=== PATIENT | female | born 1940 | race Caucasian/White ===

== ENCOUNTER 2020-01-21 17:29 | Inpatient (IN) | payer MEDICARE, OTHER ==
[~2020-01-21] VITALS: Ht 167.6 cm; Wt 70.3 kg
--- NOTE | 2020-01-21 17:35 | NUR ---
wagner, from home, c/o cough and bodyaches s/p exposure to covid 19, sister was positive and visited her at home. On room air, breathing evenly and unlabored. Connected to the monitor and pulse ox. kept comfortable, will continue to monitor accordingly.
[2020-01-21 18:09] LABS: BASOPHILS % (AUTO) 0.9 % (0.0-2.0); HEMATOCRIT 36 % (33-45); LYMPHOCYTES # (AUTO) 0.5 /CMM (0.8-4.8); LYMPHOCYTES % (AUTO) 11.6 % (20.0-44.0); MEAN CORPUSCULAR HGB CONC 34 g/dl (31.0-36.0); MEAN CORPUSCULAR VOLUME 87 fL (82-100); MONOCYTES # (AUTO) 0.1 /CMM (0.1-1.30); MONOCYTES % (AUTO) 3.2 % (2.0-12.0); NEUTROPHILS # (AUTO) 3.3 /CMM (1.8-8.9); NEUTROPHILS % (AUTO) 84.3 % (43.0-81.0); PLATELET COUNT (AUTO) 165 /CMM (150-450); RED BLOOD CELL COUNT(AUTO) 4.13 MIL/uL (4.0-5.2)
--- NOTE | 2020-01-21 18:13 | NUR ---
IV access initiated and blood drawned and sent to lab.
[2020-01-21 18:17] LABS: CALCIUM, SERUM 8.7 mg/dL (8.5-10.1); CREATININE 0.8 mg/dL (0.6-1.3); POTASSIUM 3.4 mmol/L (3.5-5.1)
[2020-01-21] MEDS ORDERED: CEFTRIAXONE 1GM BAG (ER ONLY) 50 ML IV ONE (18:57)
[2020-01-21] MEDS ORDERED: POTASSIUM CHLORIDE 20 MEQ TAB.PRT.SR PO ONE ×2 (18:58→19:00)
[2020-01-21] MEDS ORDERED: CEFTRIAXONE 1 G in IV D5W 50 ML IV ONE (19:00)
[2020-01-21] MEDS ORDERED: AZITHROMYCIN 500 MG in IV D5W 250 ML IV ONE (19:00)
--- NOTE | 2020-01-21 19:00 | NUR ---
[facility] PAGED, DR. VARGAS ON-CALL. AWAITING FOR CALL BACK.
--- NOTE | 2020-01-21 19:25 | NUR ---
TOOK OVER PT CARE. PT IN BED RESTING COMFORTABLY. VSS. ON REGIONAL FORESTER AND PULSE OX. VSS.
--- NOTE | 2020-01-21 19:27 | NUR ---
PT AAOX4. AWARE OF BEING ADMITTED, VSS.
--- NOTE | 2020-01-21 19:35 | NUR ---
CALLED NURSING SUP FOR BED
--- NOTE | 2020-01-21 19:37 | NUR ---
Shane gay in [facility] - 01/21/20 at 2010 by MICKY CALLED NURSING SUP FOR BED
--- NOTE | 2020-01-21 20:10 | NUR ---
BED ASSIGNMENT TELE 110
--- NOTE | 2020-01-21 20:25 | NUR ---
SPOKE TO [facility], UPDATED PLAN OF CARE.
--- NOTE | 2020-01-21 20:43 | NUR ---
CALLED TO GIVE REPORT, NURSE WILL CALL BACK.
--- NOTE | 2020-01-21 20:51 | NUR ---
CALLED TO GIVE REPORT, NURSE NOT AVAILABLE.
--- NOTE | 2020-01-21 21:01 | NUR ---
REPORT GIVEN TO MILAGROS VÁZQUEZ FOR NABIL
--- NOTE | 2020-01-21 21:21 | NUR ---
PT TRANSFERED PER ACLS PROTOCOL
[2020-01-21 21:50] VITALS: BP 153/83
--- NOTE | 2020-01-21 21:50 | NUR ---
TYRE FINISHER AND EXAMINER ADMISSION NOTES, RECEIVED 79 YEAR OLD FEMALE ADMITTED FROM ER VIA STRETCHER ACCOMPANIED BY RN AND BANDER OPERATOR, UNDER MEDICAL SERVICES OF DR CHRIS GOLD WITH ADMITTING DX COVID 19/PNA, PATIENT A/O X3 ASHLI TO VERBALIZED NEEDS AND CONCERNS, PATIENT WITH SOB/COUGH PLACED PATIENT IN 2PM VIA NC, AFEBRILE AT THIS TIME, SKIN INTACT, IV ACCESS IN RIGHT AC 18G, PATENT AND INTACT, NSR IN TELE MONITOR WITH BBB HR IN 80S AT THIS TIME, BED LOCKED IN LOW POSITION, AMBULATES BUT SOB AT THIS TIME, BSC PLACED FOR PATIENT CONFORMABILITY AND PRESERVE O2, CALL LIGHT W/I REACH, WILL CONTINUE TO MONITOR CLOSELY.
[2020-01-21] MEDS ORDERED: MAG HYDROX/AL HYDROX/SIMETH 30 ML UDC PO PRN (22:30)
[2020-01-21] MEDS ORDERED: Z GUARD REMEDY 2 OZ OINT TP PRN (22:30)
[2020-01-21] MEDS ORDERED: ZOLPIDEM TARTRATE 5 MG TABLET PO PRN (22:30)
[2020-01-21] MEDS ORDERED: MAGNESIUM HYDROXIDE 30 ML UDC PO PRN (22:30)
[2020-01-21] MEDS ORDERED: HYDROCODONE/APAP 5/325MG TABLET PO PRN (22:30)
[2020-01-22] MEDS: ENOXAPARIN SODIUM 40 MG/0.4 ML DISP.SYRIN SQ SCH ×2 (00:23→22:48)
[2020-01-22 04:00] VITALS: BP 134/74
[2020-01-22 06:05] LABS: BASOPHILS % (AUTO) 0.4 % (0.0-2.0); HEMATOCRIT 35 % (33-45); HEMOGLOBIN 11.6 g/dL (11.5-14.8); LYMPHOCYTES # (AUTO) 0.7 /CMM (0.8-4.8); LYMPHOCYTES % (AUTO) 24.4 % (20.0-44.0); MEAN CORPUSCULAR HGB CONC 33 g/dl (31.0-36.0); MEAN CORPUSCULAR VOLUME 86 fL (82-100); MONOCYTES # (AUTO) 0.3 /CMM (0.1-1.30); MONOCYTES % (AUTO) 11.5 % (2.0-12.0); NEUTROPHILS # (AUTO) 1.7 /CMM (1.8-8.9); NEUTROPHILS % (AUTO) 63.7 % (43.0-81.0); PLATELET COUNT (AUTO) 177 /CMM (150-450); RED BLOOD CELL COUNT(AUTO) 4.08 MIL/uL (4.0-5.2); WHITE BLOOD COUNT (AUTO) 2.7 K/uL (4.3-11.0)
[2020-01-22 06:07] LABS: CALCIUM, SERUM 8.6 mg/dL (8.5-10.1); CARBON DIOXIDE 24 mmol/L (21-32); CHLORIDE 106 mmol/L (98-107); CREATININE 0.7 mg/dL (0.6-1.3); GLUCOSE 132 mg/dL (74-106); MAGNESIUM 2.2 mg/dL (1.8-2.4); PHOSPHORUS 3.6 mg/dL (2.5-4.9); POTASSIUM 3.9 mmol/L (3.5-5.1); SODIUM SERUM 142 mmol/L (136-145); UREA NITROGEN, BLOOD 18 mg/dL (7-18)
[2020-01-22 06:15] LABS: CHOLESTEROL 163 mg/dL (<200); HDL CHOLESTEROL 22 mg/dL (40-60); LDL 111 mg/dL (0-99); THYROID STIMULATING HORMONE 0.537 uIU/mL (0.358-3.74); TRIGLYCERIDES 148 mg/dL (30-150)
--- NOTE | 2020-01-22 06:48 | NUR ---
ACID ADJUSTER CLOSING NOTES, PATIENT IN BED AWAKE AT THIS TIME, PATIENT WITH, NO ACUTE DISTRESS NOTED THROUGHOUT THE NIGHT, WITH SOB STILL O2 SAT >96%, NSR ON TELE MONITOR SINUS TACHY AT TIMES IN LOW 100S, AFEBRILE THROUGHOUT THE NIGHT, NO SIGNIFICANT CHANGE IN CONDITION DURING THE NIGHT, BED LOCKED IN LOW POSITION, AMBULATES TO RESTROOM, CALL LIGHT W/I REACH, WILL ENDORSE CONTINUITY OF CARE TO ONCOMING NURSE.
[2020-01-22 06:49] LABS: BAND % (MANUAL) 1 % (0.0-5.0); EOSINOPHILS % (MANUAL) 1 % (0-4); LYMPHOCYTES % (MANUAL) 32 % (16-48); MONOCYTES % (MANUAL) 9 % (0-11.0); NEUTROPHILS % (MANUAL) 57 (42-76)
--- NOTE | 2020-01-22 07:30 | NUR ---
CONVEYOR MAN OPENING NOTES PATIENT A/O X3 AND ABLE TO VERBALIZED HER NEEDS. PATIENT WITH SOB/COUGH PLACED PATIENT IN 2PM VIA NC, AFEBRILE AT THIS TIME, SKIN INTACT, IV ACCESS IN RIGHT AC 18G, PATENT AND INTACT, NSR IN TELE MONITOR WITH BBB HR IN 80S AT THIS TIME, BED LOCKED IN LOW POSITION. BSC PLACED FOR PATIENT CONFORMABILITY AND PRESERVE O2, CALL LIGHT W/I REACH, WILL CONTINUE TO MONITOR.
[2020-01-22] MEDS: PANTOPRAZOLE 40 MG TABLET.DR PO SCH (08:31)
[2020-01-22] MEDS ORDERED: DIFL5DRO RIGHTEYE (09:18)
[2020-01-22] MEDS ORDERED: CARV3.122 PO (09:18)
[2020-01-22] MEDS ORDERED: AMLO-212 PO (09:18)
[2020-01-22] MEDS ORDERED: BROM5DRO3 RIGHTEYE (09:18)
[2020-01-22] MEDS ORDERED: BRIN8DRO RIGHTEYE (09:18)
[2020-01-22] MEDS ORDERED: EZET10TA32 PO (09:18)
[2020-01-22] MEDS ORDERED: LOSA50TA39 PO (09:18)
[2020-01-22] MEDS ORDERED: ICOS1CAP PO (09:18)
[2020-01-22] MEDS ORDERED: ERGO500014 PO (09:18)
[2020-01-22] MEDS ORDERED: HYDR12.55 PO (09:19)
[2020-01-22] MEDS ORDERED: LANS30CA56 PO (09:19)
[2020-01-22] MEDS ORDERED: ASPI-1169 PO (09:19)
[2020-01-22] MEDS: DEXAMETHASONE SOD PHOSPHATE 10 MG/ML VIAL IV SCH (09:38)
[2020-01-22 14:11] LABS: ABG BASE EXCESS -4.1 mmol/L; ABG OXYGEN SATURATION 94.1 % (92.0-98.5); ABG PCO2 24.9 mmHg (35.0-45.0); ABG PH 7.474 (7.350-7.450); ABG PO2 67.5 mmHg (75.0-100.0); AaDO2 52.4 mmHg; COHb 0.2 % (0.5-1.5); MetHb 0.4 % (0.0-1.5); O2Hb 93.5 % (94.0-97.0); SITE, ABG Right Radial; VENT MODE, BG room air
[2020-01-22] MEDS: ACETAMINOPHEN 325 MG TABLET PO PRN (15:24)
--- NOTE | 2020-01-22 18:30 | NUR ---
SENIOR CARE ASSISTANT CLOSING NOTES PATIENT ALERT AND ORIENTED X4. NOT IN ANY ACUTE DISTRESS AT THIS TIME. PT STILL WITH COMPLAIN OF MILD TO MODERATE SOB, O2 SAT >96% WITH NC AT 2LPM. NSR ON TELE MONITOR AND HR IN 90S, BED LOCKED IN LOW POSITION, AMBULATES TO RESTROOM, CALL LIGHT W/I REACH, WILL ENDORSE TO NEXT SHIFT FOR NABIL.
--- NOTE | 2020-01-22 19:35 | NUR ---
RN NOTES PATIENT ALERT AND ORIENTED X4, NO SOB OR ANY RESPIRATORY DISTRESS. ON O2 @2LPM VIA NASAL CANNULA WITH O2 SAT 98%. ON TELE MONITOR, HR IN 90'S. AMBULATES TO RESTROOM. DENIES ANY PAIN OR DISCOMFORT. KEPT CLEAN AND DRY. CALL LIGHT WITHIN REACH. BED LOCKED AND IN LOWEST POSITION. ALL SAFETY MEASURES IMPLEMENTED. CALL LIGHT WITHIN REACH. WILL CONTINUE TO MONITOR.
[2020-01-22 20:00] VITALS: BP 128/68
[2020-01-22] MEDS: AZITHROMYCIN 500 MG in IV D5W 250 ML IV SCH (20:06)
[2020-01-22] MEDS: CEFTRIAXONE 1 G in IV D5W 50 ML IV SCH (21:44)
[2020-01-23] VITALS: BP 144/70
[2020-01-23 04:00] VITALS: BP 129/65
--- NOTE | 2020-01-23 06:53 | NUR ---
RN NOTES PATIENT ALERT AND ORIENTED X4, NO SOB OR ANY RESPIRATORY DISTRESS. ON O2 @2LPM VIA NASAL CANNULA WITH O2 SAT 98%. ON TELE MONITOR, HR IN 90'S. AMBULATES TO RESTROOM. NO SIGNIFICANT CHANGES AT THIS TIME. CALL LIGHT WITHIN REACH. BED LOCKED AND IN LOWEST POSITION. ALL SAFETY MEASURES IMPLEMENTED. CALL LIGHT WITHIN REACH. ENDORSED TO NEXT SHIFT.
--- NOTE | 2020-01-23 07:40 | NUR ---
SHIFT REPORT Recv'd pt. and report from night nurse. Pt. AAOx4 sitting up in bed semi-fowlers with no c/o pain. Tele monitor on reading NSR. O2 @ 2LPM via NC. Pt. c/o SOB and being cold, and stated she did not sleep last night due to having SOB. Explained to pt. she has Pneumonia, which SOB and chills are some symptoms. Pulled pt. up in bed to help improve breathing. Pt. is not exhibiting respiratory distress. Bed in lowest position locked. All safety measures implemented. Call sierra within reach. Will continue to monitor pt.
[2020-01-23 07:41] LABS: C-REACTIVE PROTEIN 4.1 mg/dL (0.0-0.9)
[2020-01-23 12:00] VITALS: BP 97/59
[2020-01-23] MEDS: DEXAMETHASONE SOD PHOSPHATE 10 MG/ML VIAL IV SCH (12:17)
[2020-01-23] MEDS: ACETAMINOPHEN 325 MG TABLET PO PRN ×2 (12:17→23:06)
[2020-01-23] MEDS: PANTOPRAZOLE 40 MG TABLET.DR PO SCH (12:17)
--- NOTE | 2020-01-23 12:30 | NUR ---
Assisted pt. to bathroom. Pt. still c/o SOB, chills, and headache. Administered Tylenol 650mg. Will reevaluate for pain within hour.
--- NOTE | 2020-01-23 13:00 | NUR ---
Daughter, Gillian, and son Marco called inquiring about pt. status, results of chest x-ray done this morning, and requesting to speak with doctor. Informed will call doctor.
[2020-01-23 16:00] VITALS: BP 118/68
--- NOTE | 2020-01-23 16:00 | NUR ---
Spoke with Dr. Graves about pt. having SOB since last night with low O2 saturations at 90%. Informed Dr. patient's son and daughter were requesting to speak with him. Doctor stated that patient's O2 saturation has to stay above 94%, and to increase O2 to 4LPM. Doctor stated will call daughterGillian at .
--- NOTE | 2020-01-23 19:30 | NUR ---
END OF SHIFT REPORT Endorsed pt. to night nurse in stable condition. Pt. is awake and alert x4, and states the Tylenol helped and has no more headache. Pt. also stated her breathing is better, and exhibits no s/s of SOB or respiratory distress. O2 saturation increased to 95%. Pt. ambulatory with assist. IV in Right forearm intact and patent with no s/s of infection or infiltration. Bed in lowest position and locked. All safety measures implemented with call sierra within reach.
[2020-01-23] MEDS: CEFTRIAXONE 1 G in IV D5W 50 ML IV SCH (19:54)
[2020-01-23 20:00] VITALS: BP 112/71
--- NOTE | 2020-01-23 20:00 | NUR ---
RN NOTE PT RECEIVED IN BED RESTING, A/A/O X4. PT IS ON 4 L NC SATING 93 TO 94%, PT HAS UNLABORED BREATHING. PT IS ON TELE MONITOR SHOWING SR IN 80s. SAFETY MEASURES IN PLACE.
[2020-01-23] MEDS: AZITHROMYCIN 500 MG in IV D5W 250 ML IV SCH (20:30)
[2020-01-23] MEDS: ENOXAPARIN SODIUM 40 MG/0.4 ML DISP.SYRIN SQ SCH (23:06)
[2020-01-24] VITALS: BP 108/58
[2020-01-24 04:00] VITALS: BP 106/62
--- NOTE | 2020-01-24 07:25 | NUR ---
RN NOTE PT REMAINED STABLE DURING MY SHIFT, NO ACUTE CHANGES, SHIFT REPORT GIVEN TO INCOMING SHIFT FOR NABIL.
--- NOTE | 2020-01-24 07:45 | NUR ---
RN NOTES PT IN BED RESTING. PT IS ON 8 L OF OXYGEN MASK SAT IN HER 90'S. RAC#18 IS INTACT NO S/S OF INFILTRATION OR INFECTION NOTED.SAFETY MEASUREMENTS ARE IMPLEMENTED PER HOSPITAL POLICY .BED IS IN THE LOWEST POSITIONAND ON THE BRAKE. SIDE RAILS ARE UP X2. CALL LIGHT WITHIN THE PATIENT REACH.WILL CONTINUE TO MONITOR
[2020-01-24 08:00] VITALS: BP 105/55
[2020-01-24] MEDS: PANTOPRAZOLE 40 MG TABLET.DR PO SCH (08:39)
[2020-01-24] MEDS: DEXAMETHASONE SOD PHOSPHATE 10 MG/ML VIAL IV SCH (08:39)
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
[2020-01-24 09:50] LABS: BASOPHILS % (AUTO) 0.1 % (0.0-2.0); HEMATOCRIT 36 % (33-45); LYMPHOCYTES # (AUTO) 0.8 /CMM (0.8-4.8); LYMPHOCYTES % (AUTO) 7.3 % (20.0-44.0); MEAN CORPUSCULAR HGB CONC 33 g/dl (31.0-36.0); MEAN CORPUSCULAR VOLUME 86 fL (82-100); MONOCYTES # (AUTO) 0.9 /CMM (0.1-1.30); MONOCYTES % (AUTO) 8.1 % (2.0-12.0); NEUTROPHILS # (AUTO) 8.9 /CMM (1.8-8.9); NEUTROPHILS % (AUTO) 84.5 % (43.0-81.0); PLATELET COUNT (AUTO) 213 /CMM (150-450); RED BLOOD CELL COUNT(AUTO) 4.22 MIL/uL (4.0-5.2); WHITE BLOOD COUNT (AUTO) 10.6 K/uL (4.3-11.0)
--- NOTE | 2020-01-24 10:00 | NUR ---
RN NOTES PT HAVING SOB REPLACED NASAL CANNULA WITH THE MASK STILL ON 8 L. SATURATION GOES DOWN WHEN SPEAKS OR COUGHS OTHERWISE SATURATING IN 95-97
[2020-01-24 10:02] LABS: CALCIUM, SERUM 8.4 mg/dL (8.5-10.1); CREATININE 0.9 mg/dL (0.6-1.3); POTASSIUM 3.5 mmol/L (3.5-5.1)
--- NOTE | 2020-01-24 11:30 | NUR ---
RN NOTES DR LEVY AWARE OF HER SATURATION STATUS. WILL ORDER CONVALESCENCE PLASMA AND RENDEVIZIR MEDICATION FOR COVID
[2020-01-24 12:00] VITALS: BP 118/58
[2020-01-24 12:07] LABS: C-REACTIVE PROTEIN 15.8 mg/dL (0.0-0.9)
[2020-01-24] MEDS ORDERED: REMDESIVIR (INVESTIGATIONAL) 200 MG in IV NS 0.9% 210 ML IV ONE ×2 (13:00→14:00)
--- NOTE | 2020-01-24 13:00 | NUR ---
RN NOTES DAUGHTER AND SON CALLED MULTIPLE TIMES IN REGARDS TO PATIENT'S STATUS
[2020-01-24 13:33] LABS: ALBUMIN 2.8 g/dL (3.4-5.0); BILIRUBIN,DIRECT 0.1 mg/dL (0.0-0.2); BILIRUBIN,TOTAL 0.3 mg/dL (0.2-1.0); TOTAL PROTEIN, SERUM 7.5 g/dL (6.4-8.2)
--- NOTE | 2020-01-24 14:45 | NUR ---
RN NOTES STARTED REMDEVIR NO REACTION BP IS 112/56
--- NOTE | 2020-01-24 15:45 | NUR ---
RN NOTES PT HAD NO REACTION TO REMDEVIR. PT IS ON MASK ON 8 L SAT 95-97%
[2020-01-24 16:00] VITALS: BP 112/56
[2020-01-24] MEDS: CARVEDILOL 3.125 MG TABLET PO SCH (16:18)
[2020-01-24] MEDS ORDERED: Brinzolamide/Brimonid Tart (Simbrinza 1%-0.2% Eye Drops RIGHTEYE SCH (17:00)
--- NOTE | 2020-01-24 19:02 | NUR ---
RN CLOSING NOTES PT IN BED RESTING. PT IS ON 8 L OF OXYGEN MASK SAT IN HER HIGH 90'S. RAC#18 IS INTACT NO S/S OF INFILTRATION OR INFECTION NOTED.SAFETY MEASUREMENTS ARE IMPLEMENTED PER HOSPITAL POLICY .BED IS IN THE LOWEST POSITION AND ON THE BRAKE. SIDE RAILS ARE UP X2. CALL LIGHT WITHIN THE PATIENT REACH.WILL ENDORSE TO PM NURSE FOR CONTINUE OF CARE
--- NOTE | 2020-01-24 19:20 | NUR ---
RN NOTE PT IN BED IN HIGH LINDER'S POSITION. AWAKE AND ALERT/ORIENTED X 4. ON 8L FACEMASK. RESPIRATIONS EVEN AND UNLABORED. ON CONTINUOUS PULSE OX WITH O2 SAT OF 96%. DENIES PAIN OR DISCOMFORT. NSR ON THE TELE MONITOR. IV LINES PATENT AND INTACT. PLAN OF CARE DISCUSSED. CALL LIGHT WITHIN REACH, SAFETY MEASURES IN PLACE PER PROTOCOL, BED LOCKED AND IN LOW POSITION, SIDE RAILS UP X 2, WILL MONITOR PATIENT.
[2020-01-24 20:00] VITALS: BP 120/57
--- NOTE | 2020-01-24 20:34 | NUR ---
RN NOTE WITNESSED PT SIGN CONSENT FOR CONVALESCENT PLASMA. ALSO ASSISTED PT TO BEDSIDE COMMODE WITH 1 PERSON ASSIST.
[2020-01-24] MEDS: ENOXAPARIN SODIUM 40 MG/0.4 ML DISP.SYRIN SQ SCH (21:43)
[2020-01-24] MEDS: ACETAMINOPHEN 325 MG TABLET PO PRN (23:17)
[2020-01-25] VITALS: BP 142/76
[2020-01-25 04:00] VITALS: BP 140/78
--- NOTE | 2020-01-25 05:00 | NUR ---
RN NOTE PT ASSISTED WITH USING BED AGVIN. AFTERWARDS, PT BECAME SHORT OF BREATH AND O2 SATURATION DROPPED TO 85-88%. PLACED PT ON NON REBREATHER MASK 15L. O2 SATURATION INCREASED TO 95%. WILL CONTINUE TO MONITOR PATIENT.
--- NOTE | 2020-01-25 05:47 | NUR ---
RN NOTE PLACED PT BACK ON 8L FACEMASK. O2 SATURATION 96%. RESPIRATIONS EVEN AND UNLABORED. ALSO PLACED SCD PUMPS ON PATIENT.
--- NOTE | 2020-01-25 06:39 | NUR ---
RN NOTE SPOKE TO OMAR (SON) AND GAVE UPDATE ON PT'S STATUS AND PLAN OF CARE. SON VERBALIZED UNDERSTANDING.
[2020-01-25 06:53] LABS: BASOPHILS % (AUTO) 0.1 % (0.0-2.0); HEMATOCRIT 38 % (33-45); HEMOGLOBIN 12.4 g/dL (11.5-14.8); LYMPHOCYTES # (AUTO) 0.9 /CMM (0.8-4.8); LYMPHOCYTES % (AUTO) 7.2 % (20.0-44.0); MEAN CORPUSCULAR HGB CONC 33 g/dl (31.0-36.0); MEAN CORPUSCULAR VOLUME 86 fL (82-100); MONOCYTES # (AUTO) 0.9 /CMM (0.1-1.30); MONOCYTES % (AUTO) 7.1 % (2.0-12.0); NEUTROPHILS # (AUTO) 10.6 /CMM (1.8-8.9); NEUTROPHILS % (AUTO) 85.6 % (43.0-81.0); PLATELET COUNT (AUTO) 239 /CMM (150-450); RED BLOOD CELL COUNT(AUTO) 4.39 MIL/uL (4.0-5.2); WHITE BLOOD COUNT (AUTO) 12.4 K/uL (4.3-11.0)
--- NOTE | 2020-01-25 07:08 | NUR ---
RN NOTE PT AWAKE AND ALERT/ORIENTED X 4 IN BED. IN HIGH FOLWER'S POSITION. ON FACE MASK 8L. O2 SATURATION VIA CONTINUOUS PULSE OX 96%. RESPIRATIONS EVEN AND UNLABORED, DENIES PAIN OR DISCOMFORT. SCD PUMPS IN PLACE AND FULLY FUNCTIONAL. IV LINES PATENT AND INTACT WITHOUT COMPLICATIONS NOTED AT SITES. NSR VIA TELE MONITOR. CALL LIGHT WITHIN REACH, SAFETY MEASURES IN PLACE, WILL ENDORSE TO MORNING RN FOR NABIL.
[2020-01-25 07:15] LABS: ALBUMIN 2.7 g/dL (3.4-5.0); BILIRUBIN,DIRECT 0.1 mg/dL (0.0-0.2); BILIRUBIN,TOTAL 0.3 mg/dL (0.2-1.0); CALCIUM, SERUM 8.4 mg/dL (8.5-10.1); CREATININE 0.8 mg/dL (0.6-1.3); POTASSIUM 3.3 mmol/L (3.5-5.1); TOTAL PROTEIN, SERUM 7.5 g/dL (6.4-8.2)
[2020-01-25] MEDS ORDERED: Medication Not On Formulary EA (Lansoprazole 30 MG) PO SCH (07:30)
[2020-01-25 08:00] VITALS: BP 150/67
--- NOTE | 2020-01-25 09:40 | NUR ---
RN OPENING NOTE RECEIVED PATIENT IN BED RESTING, NO S/S OF DISTRESS AT THIS TIME. PATIENT NO NONREBREATHER MASK WITH 8L OXYGEN THERAPY. OXYGEN SATURATINO CURRENTLY 95%, VISIBLE SHORTNESS OF BREATH NOTED. TELE MONITOR SHOWING NSR. SIN INTACT. R AC #18G IV AND R FA 20G IV INTACT AND PATENT, NO S/S OF INFECTION AT THIS TIME. ALL SAFETY MEASURES IN PLACE, BED LOCKED IN LOWEST POSITION. CALL LIGHT WITHIN REACH. WILL CONTINUE TO MONITOR AND PROVIDE TREATMENT.
[2020-01-25] MEDS: PANTOPRAZOLE 40 MG TABLET.DR PO SCH (11:04)
[2020-01-25] MEDS: EZETIMIBE 10 MG TABLET PO SCH (11:04)
[2020-01-25] MEDS: CARVEDILOL 3.125 MG TABLET PO SCH ×2 (11:05→17:17)
[2020-01-25] MEDS: ASPIRIN 81 MG TAB.CHEW PO SCH (11:06)
[2020-01-25] MEDS: DEXAMETHASONE SOD PHOSPHATE 10 MG/ML VIAL IV SCH (11:07)
[2020-01-25] MEDS: LOSARTAN POTASSIUM 50 MG TABLET PO SCH (11:07)
[2020-01-25] MEDS: AMLODIPINE BESYLATE 5 MG TABLET PO SCH (11:08)
[2020-01-25] MEDS: HYDROCHLOROTHIAZIDE 25 MG TABLET PO SCH (11:08)
[2020-01-25] MEDS ORDERED: POTASSIUM CHLORIDE 20 MEQ TAB.PRT.SR PO SCH (11:30)
[2020-01-25 12:00] VITALS: BP 145/69
[2020-01-25] MEDS: REMDESIVIR (INVESTIGATIONAL) 100 MG in IV NS 0.9% 230 ML IV SCH (14:35)
[2020-01-25 16:00] VITALS: BP 140/69
[2020-01-25] MEDS: BRIMONIDINE TARTRATE OPHT SOLN 5 ML BOTTLE OP SCH (17:00)
[2020-01-25] MEDS: DORZOLAMIDE OPTH 2% 10 ML BOTTLE RIGHTEYE SCH (17:00)
--- NOTE | 2020-01-25 18:38 | NUR ---
RN CLOSING NOTE RECEIVED PATIENT IN BED RESTING, NO S/S OF DISTRESS AT THIS TIME. PATIENT ON NONREBREATHER MASK WITH 8L OXYGEN THERAPY. OXYGEN SATURATION CURRENTLY 97%, VISIBLE SHORTNESS OF BREATH NOTED. TELE MONITOR SHOWING NSR. SIN INTACT. R AC #18G IV AND R FA 20G IV INTACT AND PATENT, NO S/S OF INFECTION AT THIS TIME. CURRENTLY WAITING ON PLASMA TO ARRIVE FOR ADMINISTRATION. ALL SAFETY MEASURES IN PLACE, BED LOCKED IN LOWEST POSITION. CALL LIGHT WITHIN REACH. WILL ENDORSE TO NIGHT NURSE FOR NABIL.
--- NOTE | 2020-01-25 19:45 | NUR ---
RN NOTES PATIENT IN BED ALERT AND ORIENTED X4, ABLE TO COMMUNICATE NEEDS. RECEIVED PATIENT ON NON REBREATHER MASK, NOT IN ANY DISTRESS, DENIES ANY SOB. CHANGED TO SIMPLE MASK AT 8LPM. O2 SATING AT 90 %. BREATHING EVEN AND UNLABORED. PATIENT ON TELE MONITORING SR HR 71. DENIES ANY PAIN. WITH RIGHT AC G 18 AND RIGHT FA G 20, BOTH PATENT AND INTACT, FLUSHED WITH NS. NO SIGNS OF INFILTRATION NOTED, NO INFECTION NOTED. ALL MEASURES IMPLEMENTED PER PROTOCOL, SIDE RAILS UP X 2, CALL LIGHT WITHIN REACH. BED LOCKED IN LOWEST POSITION.
[2020-01-25 20:00] VITALS: BP 122/56
[2020-01-25] MEDS: ENOXAPARIN SODIUM 40 MG/0.4 ML DISP.SYRIN SQ SCH (21:13)
--- NOTE | 2020-01-25 22:00 | NUR ---
telemarketing agent notes Pts c/o of cough spoke to dr sheeba barlow order and carried out robitussin 5ml po q6hrs prn for cough , will continue to monitor pts.
[2020-01-25] MEDS: GUAIFENESIN/D-METHORPHAN HB 5 ML UDC PO PRN (22:32)
--- NOTE | 2020-01-25 23:50 | NUR ---
RN NOTE PATIENT NOTED WITH SOB, PUT ON NON REBREATHER MASK AT 15LPM.
[2020-01-26] VITALS (10 sets, daily range): BP systolic 106–143; BP diastolic 46–68
--- NOTE | 2020-01-26 04:30 | NUR ---
RN NOTES COUGH STILL NOTED. ROBITUSSIN 5ML GIVEN ORDERED.
[2020-01-26] MEDS: GUAIFENESIN/D-METHORPHAN HB 5 ML UDC PO PRN ×2 (04:35→21:50)
--- NOTE | 2020-01-26 06:31 | NUR ---
RN CLOSING NOTE PATIENT IN BED RESTING, NO S/S OF DISTRESS AT THIS TIME. PATIENT ON NONREBREATHER MASK WITH 15l OXYGEN THERAPY. OXYGEN SATURATION CURRENTLY 96%, VISIBLE SHORTNESS OF BREATH NOTED. TELE MONITOR SHOWING SR.IV R AC #18G IV AND R FA 20G IV INTACT AND PATENT, CURRENTLY WAITING ON PLASMA TO ARRIVE FOR ADMINISTRATION. ALL SAFETY MEASURES IN PLACE, BED LOCKED IN LOWEST POSITION. CALL LIGHT WITHIN REACH. WILL ENDORSE TO RN DAY SHIFT FOR CONTINUITY OF CARE FOR NABIL.
[2020-01-26 07:26] LABS: BASOPHILS % (AUTO) 0.1 % (0.0-2.0); HEMATOCRIT 35 % (33-45); HEMOGLOBIN 11.5 g/dL (11.5-14.8); LYMPHOCYTES % (AUTO) 11.7 % (20.0-44.0); MEAN CORPUSCULAR HGB CONC 33 g/dl (31.0-36.0); MEAN CORPUSCULAR VOLUME 86 fL (82-100); MONOCYTES # (AUTO) 0.9 /CMM (0.1-1.30); MONOCYTES % (AUTO) 10.5 % (2.0-12.0); NEUTROPHILS # (AUTO) 6.9 /CMM (1.8-8.9); NEUTROPHILS % (AUTO) 77.7 % (43.0-81.0); PLATELET COUNT (AUTO) 265 /CMM (150-450); RED BLOOD CELL COUNT(AUTO) 4.02 MIL/uL (4.0-5.2); WHITE BLOOD COUNT (AUTO) 8.9 K/uL (4.3-11.0)
--- NOTE | 2020-01-26 07:29 | NUR ---
RN OPENING NOTE PATIENT IN BED RESTING, NO S/S OF DISTRESS AT THIS TIME. PATIENT ON NONREBREATHER MASK WITH 15L OXYGEN THERAPY. OXYGEN SATURATION CURRENTLY 97%, VISIBLE SHORTNESS OF BREATH NOTED. TELE MONITOR SHOWING SR.IV R AC #18G IV AND R FA 20G IV INTACT AND PATENT, CURRENTLY WAITING ON PLASMA TO ARRIVE FOR ADMINISTRATION. ALL SAFETY MEASURES IN PLACE, BED LOCKED IN LOWEST POSITION. CALL LIGHT WITHIN REACH. WILL CONTINUE TO MONITOR AND PROVIDE CARE.
[2020-01-26 07:40] LABS: ALBUMIN 2.5 g/dL (3.4-5.0); BILIRUBIN,DIRECT 0.1 mg/dL (0.0-0.2); BILIRUBIN,TOTAL 0.3 mg/dL (0.2-1.0); CALCIUM, SERUM 8.4 mg/dL (8.5-10.1); CREATININE 0.8 mg/dL (0.6-1.3); POTASSIUM 3.6 mmol/L (3.5-5.1)
--- NOTE | 2020-01-26 08:05 | NUR ---
PLASMA UPDATE CALLED LAB TO GET UPDATE FOR COVID PLASMA, INFORMED THAT THEY ARE STILL WAITING TO RECEIVE PLASMA.
[2020-01-26 08:06] LABS: C-REACTIVE PROTEIN 17.4 mg/dL (0.0-0.9)
[2020-01-26] MEDS: PANTOPRAZOLE 40 MG TABLET.DR PO SCH (08:42)
[2020-01-26] MEDS: LOSARTAN POTASSIUM 50 MG TABLET PO SCH (08:42)
[2020-01-26] MEDS: ASPIRIN 81 MG TAB.CHEW PO SCH (08:42)
[2020-01-26] MEDS: EZETIMIBE 10 MG TABLET PO SCH (08:42)
[2020-01-26] MEDS: DORZOLAMIDE OPTH 2% 10 ML BOTTLE RIGHTEYE SCH ×3 (08:43→16:52)
[2020-01-26] MEDS: HYDROCHLOROTHIAZIDE 25 MG TABLET PO SCH (08:43)
[2020-01-26] MEDS: BRIMONIDINE TARTRATE OPHT SOLN 5 ML BOTTLE OP SCH ×3 (08:43→16:52)
[2020-01-26] MEDS: AMLODIPINE BESYLATE 5 MG TABLET PO SCH (08:43)
[2020-01-26] MEDS: DEXAMETHASONE SOD PHOSPHATE 10 MG/ML VIAL IV SCH (08:45)
[2020-01-26] MEDS: CARVEDILOL 3.125 MG TABLET PO SCH ×2 (08:54→16:44)
[2020-01-26] MEDS: ICOSAPENT ETHYL 2 GM PO SCH ×2 (09:27→16:33)
[2020-01-26] MEDS: DIFLUPREDNATE RIGHTEYE SCH (09:28)
[2020-01-26] MEDS: REMDESIVIR (INVESTIGATIONAL) 100 MG in IV NS 0.9% 230 ML IV SCH (14:46)
[2020-01-26] MEDS: Brinzolamide/Brimonid Tart (Simbrinza 1%-0.2% Eye Drops RIGHTEYE SCH (17:47)
--- NOTE | 2020-01-26 18:35 | NUR ---
RN OPENING NOTE PATIENT IN BED RESTING, NO S/S OF DISTRESS AT THIS TIME. PATIENT ON NONREBREATHER MASK WITH 15L OXYGEN THERAPY. OXYGEN SATURATION CURRENTLY 97%, VISIBLE SHORTNESS OF BREATH NOTED. TELE MONITOR SHOWING SR. IV R AC #18G IV AND R FA 20G IV INTACT AND PATENT, CURRENTLY WAITING ON PLASMA TO ARRIVE FOR ADMINISTRATION. ALL SAFETY MEASURES IN PLACE, BED LOCKED IN LOWEST POSITION. CALL LIGHT WITHIN REACH. WILL ENDORSE TO HATCHERY EMPLOYEE RN FOR NABIL. Addendum: 01/26/20 at 1836 by MABEL MORALES RN *RN CLOSING NOTE
--- NOTE | 2020-01-26 19:30 | NUR ---
RN OPENING NOTES RECEIVED PATIENT IN BED, ALERT AND ORIENTED. ON NON-REBREATHER MASK 15L. SATING AT 91% NOT IN ANY ACUTE DISTRESS. MINIMAL SOB NOTED.HOB ELEVATED. ON TELE MONITOR READING SR HR 81. DENIES PAIN. WITH IV R AC G18 R FA G20, BOTH PATENT AND INTACT. FLUSHED WITH NS. NO SIGNS OF INFILTRATION NO INFECTION NOTED. CALL LIGHT WITHIN REACH. BED LOCKED IN LOWEST POSITION. SIDE RAILS UP X 2.
[2020-01-26] MEDS: ENOXAPARIN SODIUM 40 MG/0.4 ML DISP.SYRIN SQ SCH (21:21)
[2020-01-26] MEDS: BROMFENAC SODIUM RIGHTEYE SCH ×2 (21:21→21:29)
--- NOTE | 2020-01-26 21:30 | NUR ---
RN NOTE BROMSITE EYE DROP NOT GIVEN DUE TO PATIENT REFUSAL. EXPLAINED RISKS AND BENEFITS
--- NOTE | 2020-01-26 22:37 | NUR ---
RN NOTE CONVALESCENT PLASMA INFUSION STARTED AT 2222. NO SIGNS OF DISTRESS NOTED. PATIENT TOLERATING THE INFUSION NO S/SX OF REACTIONS NOTED. BP 131/56 R 23 HR 75 T 97.3. WILL CONTINUE TO MONITOR.
[2020-01-27] VITALS (7 sets, daily range): BP systolic 96–141; BP diastolic 51–68
--- NOTE | 2020-01-27 01:03 | NUR ---
RN NOTE CONVALESCENT PLASMA INFUSION COMPLETED. NO DISTRESS NOTED. PATIENT DENIES ANY PAIN OR DISCOMFORT AT THIS TIME. VS WITHIN NORMAL RANGE. WILL CONTINUE TO MONITOR.
[2020-01-27 06:08] LABS: EOSINOPHILS % (AUTO) 0.2 % (0.0-6.0); HEMATOCRIT 35 % (33-45); HEMOGLOBIN 11.6 g/dL (11.5-14.8); LYMPHOCYTES # (AUTO) 1.3 /CMM (0.8-4.8); LYMPHOCYTES % (AUTO) 11.6 % (20.0-44.0); MEAN CORPUSCULAR HGB CONC 33 g/dl (31.0-36.0); MEAN CORPUSCULAR VOLUME 86 fL (82-100); MONOCYTES % (AUTO) 9.1 % (2.0-12.0); NEUTROPHILS % (AUTO) 79.1 % (43.0-81.0); PLATELET COUNT (AUTO) 300 /CMM (150-450); RED BLOOD CELL COUNT(AUTO) 4.11 MIL/uL (4.0-5.2); WHITE BLOOD COUNT (AUTO) 11.4 K/uL (4.3-11.0)
--- NOTE | 2020-01-27 06:18 | NUR ---
RN CLOSING NOTE PATIENT IN BED RESTING, NO S/S OF DISTRESS AT THIS TIME. PATIENT ON NONREBREATHER MASK WITH 15liters OXYGEN THERAPY. OXYGEN SATURATION CURRENTLY 95%, VISIBLE SHORTNESS OF BREATH NOTED. TELE MONITOR SR.76 IV R AC #18G IV AND R FA 20G IV INTACT AND PATENT, ALL SAFETY MEASURES IN PLACE, BED LOCKED IN LOWEST POSITION. CALL LIGHT WITHIN REACH. WILL ENDORSE TO RN DAY SHIFT FOR CONTINUITY OF CARE FOR NABIL PTS IS S/P CONVALESCENT PLASMA NO ASE NOTED.
[2020-01-27 06:38] LABS: ALBUMIN 2.5 g/dL (3.4-5.0); BILIRUBIN,DIRECT 0.1 mg/dL (0.0-0.2); BILIRUBIN,TOTAL 0.3 mg/dL (0.2-1.0); CALCIUM, SERUM 8.4 mg/dL (8.5-10.1); CREATININE 0.8 mg/dL (0.6-1.3); POTASSIUM 3.4 mmol/L (3.5-5.1); TOTAL PROTEIN, SERUM 6.8 g/dL (6.4-8.2)
[2020-01-27] MEDS: GUAIFENESIN/D-METHORPHAN HB 5 ML UDC PO PRN ×2 (06:55→20:36)
--- NOTE | 2020-01-27 07:30 | NUR ---
PEDIATRIC SPEECH THERAPIST AM NOTES PATIENT IN BED, AWAKE, ALERT X 4, NO S/S OF DISTRESS AT THIS TIME. PATIENT ON NONREBREATHER MASK WITH 15L OXYGEN THERAPY. OXYGEN SATURATION CURRENTLY 93%, VISIBLE SHORTNESS OF BREATH NOTED ON ACTIVITY. TELE MONITOR SHOWING SR HR 74. DENIES PAIN OR DISCOMFORT, IV R AC #18G IV AND R FA 20G IV FLUSHES WELL, SITE CLEAR. ABLE TO TURN SELF, USES BSC NEEDS ASSIST. ALL SAFETY MEASURES IN PLACE, BED LOCKED IN LOWEST POSITION. CALL LIGHT WITHIN REACH. WILL CONTINUE TO MONITOR AND PROVIDE CARE. FOR 3RD BAG OF REDEMSIVIR INFUSION LATER.
[2020-01-27] MEDS: ICOSAPENT ETHYL 2 GM PO SCH ×2 (08:24→16:57)
[2020-01-27] MEDS: DIFLUPREDNATE RIGHTEYE SCH (08:25)
[2020-01-27] MEDS: PANTOPRAZOLE 40 MG TABLET.DR PO SCH (08:25)
[2020-01-27] MEDS: Brinzolamide/Brimonid Tart (Simbrinza 1%-0.2% Eye Drops RIGHTEYE SCH ×2 (08:25→16:58)
[2020-01-27] MEDS: EZETIMIBE 10 MG TABLET PO SCH (08:26)
[2020-01-27] MEDS: ASPIRIN EC 81 MG TABLET.DR PO SCH (08:26)
[2020-01-27] MEDS: DEXAMETHASONE SOD PHOSPHATE 10 MG/ML VIAL IV SCH (08:26)
[2020-01-27] MEDS: HYDROCHLOROTHIAZIDE 25 MG TABLET PO SCH (08:27)
[2020-01-27] MEDS: LOSARTAN POTASSIUM 50 MG TABLET PO SCH (08:27)
[2020-01-27] MEDS: CARVEDILOL 3.125 MG TABLET PO SCH ×2 (08:28→16:57)
[2020-01-27] MEDS: AMLODIPINE BESYLATE 5 MG TABLET PO SCH (09:00)
[2020-01-27] MEDS: ENSURE ENLIVE 237 ML LIQUID (VANILLA) PO SCH ×3 (09:30→17:07)
--- NOTE | 2020-01-27 09:30 | NUR ---
RN NOTES DUE MEDS GIVEN
[2020-01-27] MEDS ORDERED: CHOLECALCIFEROL 1,000 UNIT TABLET (VIT D3) PO SCH (11:00)
[2020-01-27] MEDS ORDERED: POTASSIUM CHLORIDE 20 MEQ TAB.PRT.SR PO ONE (11:00)
[2020-01-27] MEDS: ZINC SULFATE 220 MG CAPSULE PO SCH (11:44)
[2020-01-27] MEDS: IV D5/ 0.9% NACL 1,000 ML IV PRN (11:44)
[2020-01-27] MEDS: REMDESIVIR (INVESTIGATIONAL) 100 MG in IV NS 0.9% 230 ML IV SCH (15:09)
--- NOTE | 2020-01-27 15:18 | NUR ---
RN NOTES REDEMSIVIR BAG 3/4 STARTED. BP 100/57
--- NOTE | 2020-01-27 18:28 | NUR ---
EQUALIZER OPERATOR CLOSING NOTES PATIENT IN BED, AWAKE, ALERT X 4, RESTING. NO S/S OF DISTRESS AT THIS TIME. PATIENT ON NONREBREATHER MASK WITH 15L OXYGEN THERAPY. OXYGEN SATURATION CURRENTLY 95%, VISIBLE SHORTNESS OF BREATH NOTED ON ACTIVITY AND PM CARE. TELE MONITOR SHOWING SR HR 72. DENIES PAIN OR DISCOMFORT, IV R AC #18G IV FLUSHES WELL AND R FA 20G WITH D5NS AT 75 ML/HR. BOTH SITES CLEAR. ABLE TO TURN SELF, USES BED GAVIN. SAFETY MEASURES IN PLACE, BED LOCKED IN LOWEST POSITION. CALL LIGHT WITHIN REACH. ALL NEEDS MET. WILL ENDORSE TO NEXT SHIFT FOR NABIL.
--- NOTE | 2020-01-27 19:34 | NUR ---
TAPPER OPERATOR OPENING NOTES RECEIVED PATIENT RESTING IN BED COMFORTABLY; A/OX4, TOLERATING 15LPM VIA NON-REBREATHER WELL; NO DISTRESS NOTED; PATIENT ABLE TO MAKE NEEDS KNOWN; PATIENT EXPERIENCES SOB ON EXERTION; TELE MONITOR READS SINUS RHYTHM 62BPM; R AC 18#, R FA # 20 INTACT AND PATENT, TOLERATING IVF WELL; ISOLATION PRECAUTIONS MAINTAINED; SAFETY PRECAUTIONS IMPLEMENTED; BED LOCKED IN LOW POSITION; SIDE RAILSX2; CALL LIGHT WITHIN REACH; WILL CONT TO MONITOR
[2020-01-27] MEDS: ENOXAPARIN SODIUM 40 MG/0.4 ML DISP.SYRIN SQ SCH (21:00)
[2020-01-27] MEDS: BROMFENAC SODIUM RIGHTEYE SCH (21:01)
[2020-01-28] VITALS: BP 102/68
--- NOTE | 2020-01-28 00:06 | NUR ---
CLIENT SUCCESS DIRECTOR NOTES SPOKE WITH PATIENT'S DAUGHTER -- CELSO [phone]; WANTED UPDATE ON MOTHER'S CONDITION; PER DAUGHTER, PATIENT USUALLY FEELS COLD AND HAS HEATING BLANKET, WILL TURN ON HEATING BLANKET TO LOW SETTING AND CONT TO MONITOR;
--- NOTE | 2020-01-28 01:38 | NUR ---
COLOR CONTROL OPERATOR NOTES PATIENT REPORTING SHE IS HAVING DIFFICULTY BREATHING; SOB NOTED; PATIENT ON 15LPM VIA NON-REBREATHER, SATTING 93%; MADE AWARE; PER MD, ORDER FOR BIPAP; WILL INFORM RT AND CONT TO MONITOR Addendum: 01/28/20 at 0142 by TERESA CAPOEN RN CONFIRMING IF OKAY TO HAVE PATIENT ON BIPAP WITH COVID; PER ICU, HIGH FLOW ONLY; MADE AWARE; INFORMING RT;
[2020-01-28] MEDS: GUAIFENESIN/D-METHORPHAN HB 5 ML UDC PO PRN ×2 (02:53→21:03)
[2020-01-28] MEDS: IV D5/ 0.9% NACL 1,000 ML IV PRN (03:49)
[2020-01-28 04:00] VITALS: BP 125/63
[2020-01-28 06:31] LABS: BASOPHILS % (AUTO) 0.1 % (0.0-2.0); EOSINOPHILS % (AUTO) 0.3 % (0.0-6.0); HEMATOCRIT 37 % (33-45); HEMOGLOBIN 11.8 g/dL (11.5-14.8); LYMPHOCYTES # (AUTO) 1.3 /CMM (0.8-4.8); MEAN CORPUSCULAR HGB CONC 32 g/dl (31.0-36.0); MEAN CORPUSCULAR VOLUME 86 fL (82-100); MONOCYTES # (AUTO) 1.1 /CMM (0.1-1.30); MONOCYTES % (AUTO) 9.2 % (2.0-12.0); NEUTROPHILS # (AUTO) 9.7 /CMM (1.8-8.9); NEUTROPHILS % (AUTO) 79.4 % (43.0-81.0); PLATELET COUNT (AUTO) 321 /CMM (150-450); RED BLOOD CELL COUNT(AUTO) 4.24 MIL/uL (4.0-5.2); WHITE BLOOD COUNT (AUTO) 12.2 K/uL (4.3-11.0)
--- NOTE | 2020-01-28 06:32 | NUR ---
TOOL SMITH CLOSING NOTES PATIENT RESTING IN BED COMFORTABLY; A/OX4, SLIGHT SOB NOTED; PATIENT TOLEARTING NON-REBREATHER 15LPM WELL; SATTING 93-96%; BREATHING EVENLY; PATIENT ABLE TO MAKE NEEDS KNOWN; TELE MONITOR READS SINUS RHYTHM; ISOLATION MAINTAINED; SAFTEY PRECAUTIONS IMPLEMENTED; ALL NEEDS RENDERED; WILL ENDORSE NABIL TO ONCOMING SHIFT
[2020-01-28 06:43] LABS: ALBUMIN 2.3 g/dL (3.4-5.0); BILIRUBIN,DIRECT 0.1 mg/dL (0.0-0.2); BILIRUBIN,TOTAL 0.4 mg/dL (0.2-1.0); CALCIUM, SERUM 8.3 mg/dL (8.5-10.1); CREATININE 0.7 mg/dL (0.6-1.3); POTASSIUM 3.3 mmol/L (3.5-5.1); TOTAL PROTEIN, SERUM 6.6 g/dL (6.4-8.2)
[2020-01-28 07:00] LABS: C-REACTIVE PROTEIN 7.7 mg/dL (0.0-0.9)
--- NOTE | 2020-01-28 07:42 | NUR ---
PT RECEIVED IN BED, ALERT AND ORIENTED X 4. PT ON 15L NON REBREATHER MASK. NO RESPIRATORY DISTRESS, BREATHING IS EVEN AND UNLABORED AT 94% O2 SATURATION. TELE MONITORING SHOWS SINUS RHYTHM. PT HAS RAC #18 AND RIGHT FOREARM #20 INTACT AND FLUSHED. NO SIGNS OF INFECTION OR INFILTRATION. BED LOCKED LOWEST POSITION, CALL LIGHT WITHIN REACH. ALL SAFETY MEASURES IN PLACE. WILL CONTINUE TO MONITOR CLOSELY
[2020-01-28 08:00] VITALS: BP 117/63
[2020-01-28] MEDS: EZETIMIBE 10 MG TABLET PO SCH (09:17)
[2020-01-28] MEDS: ASPIRIN EC 81 MG TABLET.DR PO SCH (09:18)
[2020-01-28] MEDS: ZINC SULFATE 220 MG CAPSULE PO SCH (09:18)
[2020-01-28] MEDS: CARVEDILOL 3.125 MG TABLET PO SCH ×2 (09:18→18:30)
[2020-01-28] MEDS: PANTOPRAZOLE 40 MG TABLET.DR PO SCH (09:19)
[2020-01-28] MEDS: DEXAMETHASONE SOD PHOSPHATE 10 MG/ML VIAL IV SCH (09:20)
[2020-01-28] MEDS: ICOSAPENT ETHYL 2 GM PO SCH ×2 (09:22→18:30)
[2020-01-28] MEDS: DIFLUPREDNATE RIGHTEYE SCH (09:22)
[2020-01-28] MEDS: Brinzolamide/Brimonid Tart (Simbrinza 1%-0.2% Eye Drops RIGHTEYE SCH ×2 (09:23→18:30)
[2020-01-28] MEDS ORDERED: POTASSIUM CHLORIDE 20 MEQ TAB.PRT.SR PO ONE (10:30)
[2020-01-28] MEDS: ENSURE ENLIVE 237 ML LIQUID (VANILLA) PO SCH ×3 (11:21→18:30)
[2020-01-28 12:00] VITALS: BP 132/70
--- NOTE | 2020-01-28 12:12 | NUR ---
PT SOB AT REST, ON 15L O2 SATS 90%. MD LEVY NOTIFIED, ORDERS HIGH FLOW 40L, 60% O2 IF AVAILABLE. RT NOTIFIED
[2020-01-28] MEDS ORDERED: CEFEPIME 2 GM in IV D5W 100 ML IV SCH (13:00)
[2020-01-28] MEDS ORDERED: VANCOMYCIN 1 GM in IV D5W 250ml IV SCH (13:00)
[2020-01-28] MEDS: REMDESIVIR (INVESTIGATIONAL) 100 MG in IV NS 0.9% 230 ML IV SCH (14:27)
[2020-01-28 16:00] VITALS: BP 159/93
--- NOTE | 2020-01-28 16:00 | NUR ---
MD PELEG NOTIFIED OF SATS 90% ON 40L HIGH FLOW. MD PELEG ADJUST ORDER TO 60L HIGH FLOW, 60% FIO2. SATS IMPROVED TO 91-94%. PT STATES IMPROVED BREATHING
[2020-01-28 16:41] LABS: ABG BASE EXCESS -3.3 mmol/L; ABG OXYGEN SATURATION 91.4 % (92.0-98.5); ABG PCO2 25.2 mmHg (35.0-45.0); ABG PH 7.487 (7.350-7.450); ABG PO2 61.7 mmHg (75.0-100.0); AaDO2 338.4 mmHg; COHb 0.3 % (0.5-1.5); MetHb 0.3 % (0.0-1.5); O2Hb 90.9 % (94.0-97.0); SITE, ABG Right Radial; VENT MODE, BG HI FLO NC 60 L 60%
--- NOTE | 2020-01-28 19:36 | NUR ---
PT REMAINS IN BED, ALERT AND ORIENTED X 4. NO RESPIRATORY DISTRESS CURRENTLY ON 60L HIGH FLOW 60% FIO2. PT CONTINUES TO HAVE POOR APPETITE, ORDERED ENSURE DRINKS CONSUMED A TOTAL OF 10%. PT FAMILY UPDATED AND NOTIFIED OF PT CONDITION. PT IV SITES REMAIN INTACT AND FLUSHED, NO SIGNS OF INFECTION OR INFILTRATION. BED LOCKED LOWEST POSITION, CALL LIGHT WITHIN REACH, ALL SAFETY MEASURES IN PLACE. REPORT GIVEN TO HECTOR FOR NABIL
[2020-01-28 20:00] VITALS: BP 106/52
--- NOTE | 2020-01-28 20:17 | NUR ---
television engineering teacher opening note received pt in bed. a/o x2. Breathing even and unlabored on 60L 60% FIO2 high flow. 02 saturation at 91-93%. Pt denies sob. Denies any pain or discomfort. RFA iv site patent and intact. IV fluids infusing well. All needs rendered. Bed in lowest position. Srx2 up. Call light within reach. Will continue to monitor.
[2020-01-28] MEDS: BROMFENAC SODIUM RIGHTEYE SCH (22:06)
[2020-01-28] MEDS: ENOXAPARIN SODIUM 40 MG/0.4 ML DISP.SYRIN SQ SCH (22:08)
[2020-01-28] MEDS: ACETAMINOPHEN 325 MG TABLET PO PRN (22:09)
[2020-01-29] VITALS (10 sets, daily range): BP systolic 115–169; BP diastolic 45–85
[2020-01-29 06:23] LABS: BASOPHILS % (AUTO) 0.1 % (0.0-2.0); EOSINOPHILS % (AUTO) 0.4 % (0.0-6.0); HEMATOCRIT 37 % (33-45); HEMOGLOBIN 12.1 g/dL (11.5-14.8); LYMPHOCYTES # (AUTO) 1.4 /CMM (0.8-4.8); LYMPHOCYTES % (AUTO) 11.1 % (20.0-44.0); MEAN CORPUSCULAR HGB CONC 33 g/dl (31.0-36.0); MEAN CORPUSCULAR VOLUME 86 fL (82-100); MONOCYTES # (AUTO) 1.1 /CMM (0.1-1.30); MONOCYTES % (AUTO) 8.2 % (2.0-12.0); NEUTROPHILS # (AUTO) 10.3 /CMM (1.8-8.9); NEUTROPHILS % (AUTO) 80.2 % (43.0-81.0); PLATELET COUNT (AUTO) 345 /CMM (150-450); RED BLOOD CELL COUNT(AUTO) 4.32 MIL/uL (4.0-5.2); WHITE BLOOD COUNT (AUTO) 12.9 K/uL (4.3-11.0)
[2020-01-29 06:36] LABS: ALBUMIN 2.3 g/dL (3.4-5.0); BILIRUBIN,DIRECT 0.2 mg/dL (0.0-0.2); BILIRUBIN,TOTAL 0.4 mg/dL (0.2-1.0); CALCIUM, SERUM 8.4 mg/dL (8.5-10.1); CREATININE 0.8 mg/dL (0.6-1.3); POTASSIUM 3.7 mmol/L (3.5-5.1); TOTAL PROTEIN, SERUM 6.9 g/dL (6.4-8.2)
--- NOTE | 2020-01-29 06:37 | NUR ---
Datapower Consultant note Pt in bed, awake a/o x3 . Breathing even and unlabored on 60L of 02 via high flow. O2 saturation 90-92% . Normal Sinus rhythm on monitor. HR 66. No sob or acute distress noted. Rfa iv site patent and intact. IV fluids infusing well. All needs rendered. Bed in lowest position. Call light within reach. Will endorse to am nurse for continuity of care.
[2020-01-29] MEDS: PANTOPRAZOLE 40 MG TABLET.DR PO SCH (07:00)
--- NOTE | 2020-01-29 07:55 | NUR ---
SENIOR SALES ADMINISTRATOR OPENING NOTES Bedside endorsement done. Pt is in bed, awake a/o x3, amharic-speaking but able to understand Liberian. Breathing even and unlabored on 60L of 02 via high flow, w/ O2 sat between 91-93%. On tele monitoring w/ reading of SR, hr in the 70's, no cardiac distress noted. IV line on RFA #20 intact and patent, IVF of D5NS infusing well. Safety precs in place: bed locked and on lowest position, sr up x2, call light within reach. Will continue to monitor.
--- NOTE | 2020-01-29 09:55 | NUR ---
RN NOTES PATIENT SEEN BY DR. LEVY; ADJUST HIGH FLOW TO 80% FIO2, 60L.
--- NOTE | 2020-01-29 09:56 | NUR ---
CONVALESCENT PLASMA BAG HUNG. PT AFEBRILE, BP 146/61
[2020-01-29] MEDS: ASPIRIN EC 81 MG TABLET.DR PO SCH (11:10)
[2020-01-29] MEDS: DEXAMETHASONE SOD PHOSPHATE 10 MG/ML VIAL IV SCH (11:11)
[2020-01-29] MEDS: ICOSAPENT ETHYL 2 GM PO SCH ×2 (11:13→17:24)
[2020-01-29] MEDS: ENSURE ENLIVE 237 ML LIQUID (VANILLA) PO SCH ×3 (11:13→17:23)
[2020-01-29] MEDS: CARVEDILOL 3.125 MG TABLET PO SCH ×2 (11:13→17:23)
[2020-01-29] MEDS: ZINC SULFATE 220 MG CAPSULE PO SCH (11:14)
[2020-01-29] MEDS: EZETIMIBE 10 MG TABLET PO SCH (11:14)
[2020-01-29] MEDS: Brinzolamide/Brimonid Tart (Simbrinza 1%-0.2% Eye Drops RIGHTEYE SCH ×2 (11:15→17:24)
[2020-01-29] MEDS: ERGOCALCIFEROL (VITAMIN D 2) 50,000 UNIT CAPSULE PO SCH (11:18)
[2020-01-29] MEDS: DIFLUPREDNATE RIGHTEYE SCH (11:19)
--- NOTE | 2020-01-29 19:47 | NUR ---
PT REMAINS IN BED LOCKED LOWEST POSITION, PT ALERT AND ORIENTED X 4. PT ON HIGH FLOW O2, 60L AND AND 80% FIO2 PRESCRIBED BY MD LEVY, ADJUSTED FROM 60L / 60% FIO2 EARLIER THIS SHIFT. NO RESPIRATORY DISTRESS, O2 SAT 94-96%. PT ON MONITOR SHOWING SR. PT HAD 3X VOIDS IN BEDPAN TODAY. PT RFA @20 RUNNING D5NS @40 ML/HR, NO SIGNS OF INFECTION OR INFILTRATION. BED IN LOCKED LOWEST POSITION, CALL LIGHT WITHIN REACH, ALL SAFETY MEASURES IN PLACE. REPORT GIVEN TO JENNIFER FOR NABIL.
[2020-01-29] MEDS: BROMFENAC SODIUM RIGHTEYE SCH (21:39)
[2020-01-29] MEDS: ENOXAPARIN SODIUM 40 MG/0.4 ML DISP.SYRIN SQ SCH (21:41)
[2020-01-29] MEDS: GUAIFENESIN/D-METHORPHAN HB 5 ML UDC PO PRN (21:59)
[2020-01-29] MEDS: IV D5/ 0.9% NACL 1,000 ML IV PRN (23:39)
[2020-01-30] VITALS (7 sets, daily range): BP systolic 107–154; BP diastolic 41–64
--- NOTE | 2020-01-30 05:34 | NUR ---
ENDING NOTES:ALERT / ORIENTATED X4 ATTEMPTED THE INC SPIR UP TP 250 ONLY DID IT 2x SHE TIRES EASIL WITH ANY ACTIVITY. HIGH FLOW 60l/95% SATS WHEN ASLEEO 92 WHEN AWAKE 95 - 98% SHE NEEDS MAX ASSIST TO BE REPOSITIONED AND CARED FOR VITAL SIGNS STABLE. USES THE bsc WITH ONE URSE ASSIST
[2020-01-30 05:58] LABS: BASOPHILS % (AUTO) 0.1 % (0.0-2.0); EOSINOPHILS % (AUTO) 0.4 % (0.0-6.0); HEMATOCRIT 35 % (33-45); HEMOGLOBIN 11.5 g/dL (11.5-14.8); LYMPHOCYTES % (AUTO) 9.3 % (20.0-44.0); MEAN CORPUSCULAR HGB CONC 33 g/dl (31.0-36.0); MEAN CORPUSCULAR VOLUME 86 fL (82-100); MONOCYTES # (AUTO) 0.7 /CMM (0.1-1.30); NEUTROPHILS # (AUTO) 9.3 /CMM (1.8-8.9); NEUTROPHILS % (AUTO) 84.2 % (43.0-81.0); PLATELET COUNT (AUTO) 299 /CMM (150-450); RED BLOOD CELL COUNT(AUTO) 4.08 MIL/uL (4.0-5.2); WHITE BLOOD COUNT (AUTO) 11.1 K/uL (4.3-11.0)
[2020-01-30 06:40] LABS: CREATININE 0.7 mg/dL (0.6-1.3); POTASSIUM 3.8 mmol/L (3.5-5.1)
[2020-01-30] MEDS: PANTOPRAZOLE 40 MG TABLET.DR PO SCH (06:43)
[2020-01-30] MEDS: GUAIFENESIN/D-METHORPHAN HB 5 ML UDC PO PRN ×3 (06:44→21:03)
[2020-01-30 06:51] LABS: C-REACTIVE PROTEIN 19.4 mg/dL (0.0-0.9)
--- NOTE | 2020-01-30 07:37 | NUR ---
PT RECEIVED IN BED, ALERT AND ORIENTED X 4. PT CURRENTLY ON HIGH FLOW O2, 60L, 95% FIO2. O2 SATURATION 91% NO RESPIRATORY DISTRESS. PT ON MONITOR SHOWING SR. PT HAS RFA 20 RUNNING D5NS AT 40 ML/HR, NO SIGNS OF INFECTION OR INFILTRATION. PT AMBULATORY X 1 MODERATE ASSIST TO BEDSIDE COMMODE. SKIN IS INTACT. PT IN BED LOCKED LOWEST POSITION, CALL LIGHT WITHIN REACH, ALL SAFETY MEASURES IN PLACE. WILL CONTINUE TO MONITOR CLOSELY
[2020-01-30] MEDS: DEXAMETHASONE SOD PHOSPHATE 10 MG/ML VIAL IV SCH (09:39)
[2020-01-30] MEDS: ASPIRIN EC 81 MG TABLET.DR PO SCH (09:39)
[2020-01-30] MEDS: ZINC SULFATE 220 MG CAPSULE PO SCH (09:39)
[2020-01-30] MEDS: DIFLUPREDNATE RIGHTEYE SCH (09:39)
[2020-01-30] MEDS: EZETIMIBE 10 MG TABLET PO SCH (09:39)
[2020-01-30] MEDS: Brinzolamide/Brimonid Tart (Simbrinza 1%-0.2% Eye Drops RIGHTEYE SCH ×2 (09:39→19:38)
[2020-01-30] MEDS: ICOSAPENT ETHYL 2 GM PO SCH ×2 (09:40→19:38)
[2020-01-30] MEDS: CARVEDILOL 3.125 MG TABLET PO SCH ×2 (09:43→19:37)
[2020-01-30] MEDS: ENSURE ENLIVE 237 ML LIQUID (VANILLA) PO SCH ×3 (09:43→19:37)
[2020-01-30 10:54] LABS: BAND % (MANUAL) 3 % (0.0-5.0); LYMPHOCYTES % (MANUAL) 10 % (16-48); MONOCYTES % (MANUAL) 2 % (0-11.0); NEUTROPHILS % (MANUAL) 85 (42-76)
--- NOTE | 2020-01-30 11:00 | NUR ---
PT REPORTS OF SMALL AMOUNT OF BLOOD IN COUGH. MD LEVY ALERTED, INFORMS PT THAT IT IS EXPECTED WHEN ON HIGH-FLOW O2, NO FURTHER ORDERS AT THIS TIME
--- NOTE | 2020-01-30 19:30 | NUR ---
DESK EDITOR OPENING NOTES RECEIVED PATIENT IN BED, ALERT AND ORIENTED X 4. VERBALLY RESPONSIVE AND ABLE TO FOLLOW DIRECTIONS. BREATHING REGULAR AND UNLABORED ON HIGH FLOW OXYGEN AT 60L/MIN, LATEST SPO2 97%. RIGHT FOREARM G20 IV LINE INTACT AND PATENT, INFUSING WELL WITH NO BLEEDING OR S/S OF INFILTRATION NOTED. ON CARDIAC MONITORING WITH NSR AT 73bpm. DENIES PAIN/DISCOMFORT AT THIS TIME. BED LOW AND LOCKED ON HIGH FOWLERS POSITION. MAINTAINED ON CONTACT/DROPLET ISOLATION FOR COVID19, PROPER HAND WASHING AND ISOLATION PRECAUTIONS OBSERVED. CALL LIGHT IN REACH. WILL CONTINUE TO MONITOR.
--- NOTE | 2020-01-30 19:41 | NUR ---
PT REMAINS IN BED, ALERT AND ORIENTED X 4. PT ON 60L / 95% FIO2. NO RESPIRATORY DISTRESS OR SOB. PT SINUS RHYTHM ON MONITOR. PT SKIN REMAINS INTACT. PT ON CARDIAC DIET. PT RFA D5NS AT 40 ML/HR. NO SIGNS OF INFECTION OR INFILTRATION. HOB 40 DEGREES. BED IN LOCKED LOWEST POSITION, CALL LIGHT WITHIN REACH. ALL SAFETY MEASURES IN PLACE. REPORT GIVEN TO PERLA FOR NABIL
[2020-01-30] MEDS: ENOXAPARIN SODIUM 40 MG/0.4 ML DISP.SYRIN SQ SCH (21:05)
--- NOTE | 2020-01-30 21:05 | NUR ---
MEASUREMENT SUPERVISOR NOTES REQUESTED FOR ROBITUSSIN COUGH SYRUP. NON-PHARMACOLOGICAL INTERVENTIONS PROVIDED.
[2020-01-30] MEDS: BROMFENAC SODIUM RIGHTEYE SCH (21:07)
[2020-01-31] VITALS: BP 155/69
[2020-01-31 04:00] VITALS: BP 149/64
[2020-01-31 05:48] LABS: BASOPHILS % (AUTO) 0.1 % (0.0-2.0); EOSINOPHILS % (AUTO) 0.5 % (0.0-6.0); HEMATOCRIT 33 % (33-45); HEMOGLOBIN 10.8 g/dL (11.5-14.8); LYMPHOCYTES # (AUTO) 1.4 /CMM (0.8-4.8); LYMPHOCYTES % (AUTO) 9.5 % (20.0-44.0); MEAN CORPUSCULAR HGB CONC 33 g/dl (31.0-36.0); MEAN CORPUSCULAR VOLUME 86 fL (82-100); MONOCYTES % (AUTO) 6.9 % (2.0-12.0); NEUTROPHILS # (AUTO) 12.1 /CMM (1.8-8.9); PLATELET COUNT (AUTO) 280 /CMM (150-450); RED BLOOD CELL COUNT(AUTO) 3.81 MIL/uL (4.0-5.2); WHITE BLOOD COUNT (AUTO) 14.6 K/uL (4.3-11.0)
[2020-01-31 06:03] LABS: CARBON DIOXIDE 21 mmol/L (21-32); CHLORIDE 107 mmol/L (98-107); CREATININE 0.6 mg/dL (0.6-1.3); GLUCOSE 92 mg/dL (74-106); POTASSIUM 3.5 mmol/L (3.5-5.1); SODIUM SERUM 137 mmol/L (136-145); UREA NITROGEN, BLOOD 21 mg/dL (7-18)
--- NOTE | 2020-01-31 06:55 | NUR ---
HUMAN RESOURCES ASSISTANT CLOSING NOTES PATIENT IN BED, ALERT AND ORIENTED X 4. AFEBRILE WITH NO S/S OF DISTRESS OBSERVED. RIGHT FOREARM G20 IV LINE PATENT AND INFUSING WELL. MAINTAINED ON CARDIAC MONITORING WITH NSR AT 70bpm. NO COMPLAINTS OF PAIN/DISCOMFORT REPORTED AT THIS TIME. BED LOW AND LOCKED ON HIGH FOWLERS POSITION. CALL LIGHT IN REACH. WILL ENDORSE TO MORNING SHIFT FOR NABIL.
--- NOTE | 2020-01-31 08:00 | NUR ---
RN Opening note Received patient in bed AO x 13-4 able to responds all stimuli, does no appears pain or discomfort. Skin is warm to touch keep clean/dry, intact IV site on midline on JOAO running 1/2 NS at 75ml/hr. Respiratory even and unlabored with T-piece 5.0 oxygen at 5LPM O2sat 100%, no sob or distress observed. Kept bed locked with elevated HOB for ensure airway and aspiration precaution also lowest bed position for safety. Call light within reach will continue to monitor. Addendum: 01/31/20 at 1113 by BRIGID SANTANA RN Error
--- NOTE | 2020-01-31 08:00 | NUR ---
RN Opening note Received patient in bed AO x 3-4 able to responds all stimuli, does no c/o pain or discomfort. Skin is warm to touch keep clean/dry, intact IV site on right FA 20g running D5NS at 40 ml/hr. Respiratory even and unlabored with high flow oxygen O2sat 94%, no sob or distress observed. Kept bed locked with elevated HOB for ensure airway and aspiration precaution also lowest bed position for safety. Call light within reach will continue to monitor.
[2020-01-31] MEDS: PANTOPRAZOLE 40 MG TABLET.DR PO SCH (08:07)
[2020-01-31] MEDS: ASPIRIN EC 81 MG TABLET.DR PO SCH (08:39)
[2020-01-31] MEDS: DEXAMETHASONE SOD PHOSPHATE 10 MG/ML VIAL IV SCH (08:39)
[2020-01-31] MEDS: EZETIMIBE 10 MG TABLET PO SCH (08:39)
[2020-01-31] MEDS: ZINC SULFATE 220 MG CAPSULE PO SCH (08:39)
[2020-01-31] MEDS: ICOSAPENT ETHYL 2 GM PO SCH ×2 (08:40→16:29)
[2020-01-31] MEDS: DIFLUPREDNATE RIGHTEYE SCH (08:40)
[2020-01-31] MEDS: CARVEDILOL 3.125 MG TABLET PO SCH ×2 (08:40→16:28)
[2020-01-31] MEDS: ENSURE ENLIVE 237 ML LIQUID (VANILLA) PO SCH ×3 (08:41→17:52)
[2020-01-31] MEDS: Brinzolamide/Brimonid Tart (Simbrinza 1%-0.2% Eye Drops RIGHTEYE SCH ×2 (08:41→16:34)
[2020-01-31] MEDS ORDERED: TOCILIZUMAB 400 MG in IV NS 0.9% 80 ML IV ONE ×2 (16:30→20:30)
--- NOTE | 2020-01-31 16:35 | NUR ---
Brinzolamide missing called pharmacy but not available.
--- NOTE | 2020-01-31 18:27 | NUR ---
RN Closing note Patient in bed finished dinner and consumed 75%, does no appears pain or distress. Skin is warm to touch intact IV site, skin care and oral care provided, no fever observed during day shift. Respiratory even and unlabored on room air O2sat 99%. Kept locked bed with elevated HOB for ensure airway and aspiration precaution also lowest position for safety, call light within reach, will endorse film processing shift supervisor. Addendum: 01/31/20 at 1842 by BRIGID SANTANA RN error
--- NOTE | 2020-01-31 18:42 | NUR ---
RN Closing note Patient in bed finished dinner and consumed 100%, does no appears pain or distress. Skin is warm to touch intact IV site on right FA 20g running D5 NS at 40 ml/hr, no fever observed during day shift. Respiratory even and unlabored on room air O2sat 97%. Kept locked bed with elevated HOB for ensure airway and aspiration precaution also lowest position for safety, call light within reach, will endorse night manager.
[2020-01-31 20:00] VITALS: BP 140/69
[2020-01-31] MEDS ORDERED: methylPREDNISolone SOD SUCC 40 MG/ML VIAL IV ONE (20:00)
[2020-01-31] MEDS ORDERED: diphenhydrAMINE HCL 50 MG/ML VIAL IV ONE (20:00)
[2020-01-31] MEDS ORDERED: ACETAMINOPHEN 325 MG TABLET PO ONE (20:00)
--- NOTE | 2020-01-31 20:00 | NUR ---
RN NOTE RECEIVED PT IN BED RESTING, PT IS A/O X4 ON HIGH FLOW O2 SATING 93%TO94%. PT HAS UNLABORED BREATHING. PT ON TELE MONITOR SHOWING SR HR IN 70s. SAFETY MEASURES IN PLACE
[2020-01-31] MEDS: ENOXAPARIN SODIUM 40 MG/0.4 ML DISP.SYRIN SQ SCH (22:36)
[2020-01-31] MEDS: BROMFENAC SODIUM RIGHTEYE SCH (22:38)
[2020-02-01] VITALS: BP 139/58
[2020-02-01 04:00] VITALS: BP 150/63
[2020-02-01 05:51] LABS: BASOPHILS % (AUTO) 0.1 % (0.0-2.0); HEMATOCRIT 32 % (33-45); HEMOGLOBIN 10.7 g/dL (11.5-14.8); LYMPHOCYTES # (AUTO) 0.8 /CMM (0.8-4.8); LYMPHOCYTES % (AUTO) 7.1 % (20.0-44.0); MEAN CORPUSCULAR HGB CONC 33 g/dl (31.0-36.0); MEAN CORPUSCULAR VOLUME 86 fL (82-100); MONOCYTES # (AUTO) 0.4 /CMM (0.1-1.30); NEUTROPHILS # (AUTO) 9.5 /CMM (1.8-8.9); NEUTROPHILS % (AUTO) 88.8 % (43.0-81.0); PLATELET COUNT (AUTO) 281 /CMM (150-450); RED BLOOD CELL COUNT(AUTO) 3.77 MIL/uL (4.0-5.2); WHITE BLOOD COUNT (AUTO) 10.8 K/uL (4.3-11.0)
[2020-02-01 06:10] LABS: CARBON DIOXIDE 22 mmol/L (21-32); CHLORIDE 108 mmol/L (98-107); CREATININE 0.7 mg/dL (0.6-1.3); GLUCOSE 182 mg/dL (74-106); POTASSIUM 3.8 mmol/L (3.5-5.1); SODIUM SERUM 141 mmol/L (136-145); UREA NITROGEN, BLOOD 29 mg/dL (7-18)
[2020-02-01] MEDS: GUAIFENESIN/D-METHORPHAN HB 5 ML UDC PO PRN ×2 (06:22→21:12)
--- NOTE | 2020-02-01 07:00 | NUR ---
DIGITAL PRESS OPERATOR OPENING NOTES RECEIVED PT RESTING IN BED AT THIS TIME. PT AOX4. PT ABLE TO MAKE NEEDS KNOWN. NO SOB NOTED, NO S/S OF ANY ACUTE DISTRESS NOTED. NO C/O PAIN AT THIS TIME. RESPIRATIONS ARE EVEN AND UNLABORED. PT NOTED ON 60LPM HIGH FLOW OXYGEN. IV ACCESS NOTED IN RFA G#20, INTACT, PATENT AND FLUSHING WELL. PT ON EXTERNAL TELE CUTTING AND CREASING PRESS OPERATOR READING SR/ST IN THE 90s -102s. ASPIRATION AND SAFETY PRECAUTION IN PLACE AND MAINTAINED AT ALL TIMES. BED IN LOWEST LOCKED POSITION, HOB ELEVATED, SIDE RAILS UP X 2, CALL LIGHT AND TABLE WITHIN REACH. WILL CONTINUE TO MONITOR
[2020-02-01 07:25] LABS: C-REACTIVE PROTEIN 11.9 mg/dL (0.0-0.9)
--- NOTE | 2020-02-01 07:31 | NUR ---
RN NOTE PT STAYED STABLE NO ACUTE CHANGES REPORT GIVEN FOR NABIL.
[2020-02-01 08:00] VITALS: BP 147/66
[2020-02-01] MEDS: PANTOPRAZOLE 40 MG TABLET.DR PO SCH (08:36)
[2020-02-01] MEDS: ENSURE ENLIVE 237 ML LIQUID (VANILLA) PO SCH ×3 (09:02→16:54)
[2020-02-01] MEDS: CARVEDILOL 3.125 MG TABLET PO SCH ×2 (09:03→16:55)
[2020-02-01] MEDS: ZINC SULFATE 220 MG CAPSULE PO SCH (09:04)
[2020-02-01] MEDS: EZETIMIBE 10 MG TABLET PO SCH (09:04)
[2020-02-01] MEDS: ASPIRIN EC 81 MG TABLET.DR PO SCH (09:04)
[2020-02-01] MEDS: ICOSAPENT ETHYL 2 GM PO SCH ×2 (09:05→16:54)
[2020-02-01] MEDS: DIFLUPREDNATE RIGHTEYE SCH (09:06)
[2020-02-01] MEDS: Brinzolamide/Brimonid Tart (Simbrinza 1%-0.2% Eye Drops RIGHTEYE SCH ×2 (09:06→16:55)
--- NOTE | 2020-02-01 11:05 | NUR ---
VENESSA NELSON'S SON CALLED AND WAS UPDATED AT THIS TIME. WILL CONTINUE TO MONITOR
[2020-02-01 12:00] VITALS: BP 128/50
--- NOTE | 2020-02-01 13:45 | NUR ---
CELSO, PT'S DAUGHTER, REQUESTED TO SPEAK WITH HOSPITALIST. GERDA HANKINS MADE AWARE. WILL CONTINUE WITH PLAN OF CARE
[2020-02-01] MEDS: IV D5/ 0.9% NACL 1,000 ML IV PRN (14:42)
[2020-02-01 16:00] VITALS: BP 140/58
--- NOTE | 2020-02-01 18:51 | NUR ---
DIRECTOR OF VOCATIONAL TRAINING CLOSING NOTES PT AWAKE IN BED AT THIS TIME. PT REMAINED STABLE THROUGHOUT SHIFT. ALL CARE, NEED, MEDICATIONS AND TREATMENT ADMINISTERED ANTICIPATED PER ORDER. PT KEPT CLEAN AND DRY. ASPIRATION AND SAFETY PRECAUTION IN PLACE AND MAINTAINED AT ALL TIMES. BED IN LOWEST LOCKED POSITION, HOB ELEVATED, SIDE RAILS UP X 2, CALL LIGHT AND TABLE WITHIN REACH. WILL ENDORSE TO [facility] NURSE FOR NABIL
[2020-02-01 20:00] VITALS: BP 117/65
[2020-02-01] MEDS: BROMFENAC SODIUM RIGHTEYE SCH (21:12)
[2020-02-01] MEDS: ENOXAPARIN SODIUM 40 MG/0.4 ML DISP.SYRIN SQ SCH (21:13)
[2020-02-02 00:23] VITALS: BP 132/56
[2020-02-02 04:00] VITALS: BP 130/55
[2020-02-02] MEDS: ACETAMINOPHEN 325 MG TABLET PO PRN ×3 (04:21→21:41)
--- NOTE | 2020-02-02 04:21 | NUR ---
tyelenol administered patient c/o pain to left chest while breathing rated 3/10. requesting tyelenol for pain. vs wnl. will cont to monitor.
--- NOTE | 2020-02-02 07:30 | NUR ---
TELE/RN OPENING NOTE Patient resting in bed, A&O x 4. No complaints of pain/discomfort at this time. Breathing even and non-labored on 55 L high flow oxygen, saturating at 98%. No cardiac distress noted, on tele monitor, reading SR with PVCs 75. IV access noted on RFA #20, patent and intact, and flushing well. Sensation from all peripheral extremities intact. Side rails x2 up, bed locked to its lowest position, call light in hand. Will continue with current medical management.
[2020-02-02 08:00] VITALS: BP 136/68
[2020-02-02] MEDS: PANTOPRAZOLE 40 MG TABLET.DR PO SCH (08:38)
[2020-02-02] MEDS: EZETIMIBE 10 MG TABLET PO SCH (08:38)
[2020-02-02] MEDS: ZINC SULFATE 220 MG CAPSULE PO SCH (08:38)
[2020-02-02] MEDS: ASPIRIN EC 81 MG TABLET.DR PO SCH (08:38)
[2020-02-02] MEDS: DIFLUPREDNATE RIGHTEYE SCH (08:39)
[2020-02-02] MEDS: ICOSAPENT ETHYL 2 GM PO SCH ×2 (08:39→18:07)
[2020-02-02] MEDS: CARVEDILOL 3.125 MG TABLET PO SCH ×2 (08:40→18:07)
[2020-02-02] MEDS: ENSURE ENLIVE 237 ML LIQUID (VANILLA) PO SCH ×3 (08:40→18:08)
[2020-02-02] MEDS: Brinzolamide/Brimonid Tart (Simbrinza 1%-0.2% Eye Drops RIGHTEYE SCH ×2 (08:42→18:08)
[2020-02-02 08:53] LABS: CALCIUM, SERUM 7.8 mg/dL (8.5-10.1); CREATININE 0.8 mg/dL (0.6-1.3); POTASSIUM 3.8 mmol/L (3.5-5.1)
[2020-02-02] MEDS ORDERED: HYDROCODONE/APAP 5/325MG TABLET PO PRN (11:00)
--- NOTE | 2020-02-02 11:29 | NUR ---
TELE/RN NOTE Patient complaining of 3-6/10 left chest pain upon expiration that started in the evening, states "I have not slept because of the pain." Notified Dr. Chandler at bedside, ordered norco 5-325mg PO PRN for moderate pain 5-7/10. Offered norco to patient, states "I prefer tylenol instead, that's what helps me and norco makes me nauseous." Administered tylenol 650 mg PO. Will continue to monitor.
[2020-02-02 12:00] VITALS: BP 143/71
--- NOTE | 2020-02-02 14:00 | NUR ---
TELE/RN NOTE Patient states relief from left chest pain, states she was able to rest and nap throughout the afternoon. Will continue to monitor.
[2020-02-02 16:00] VITALS: BP 151/67
--- NOTE | 2020-02-02 19:30 | NUR ---
TELE/RN CLOSING NOTE Patient resting in bed, A&O x 4. All needs met and attended to. No complaints of pain/discomfort at this time. Breathing even and non-labored on 55 L high flow oxygen, no respiratory distress noted. No cardiac distress noted, on tele monitor, reading SR with PVCs 70s. IV access noted on RFA #20, patent and intact, and flushing well. Sensation from all peripheral extremities intact. Fall precautions maintained. Will endorse to temporary office assistant nurse.
--- NOTE | 2020-02-02 19:35 | NUR ---
DELINQUENT NOTICE MACHINE OPERATOR OPENING NOTES PATIENT AWAKE IN BED. A/OX4. ON 55L/MIN HIGH FLOW O2; NO S/S OF ACUTE RESPIRATORY DISTRESS; BREATHING IS EVEN AND UNLABORED; CONTINUOUS PULSE OX READING 98%. TELE MONITOR READING SINUS RHYTHM WITH PVCS, HEART RATE 64. IV PRESENT ON RIGHT FA, SIZE 20, INTACT & PATENT, HEP LOCKED. CONTACT/DROPLET PRECAUTIONS IN PLACE FOR POSITIVE COVID 19. SAFETY MEASURES IN PLACE AND PATIENT'S NEEDS MET. BED LOCKED, HOB ELEVATED, SIDE RAILS X2, CALL LIGHT WITHIN REACH. WILL CONTINUE TO MONITOR.
[2020-02-02 20:00] VITALS: BP 116/54
[2020-02-02] MEDS: BROMFENAC SODIUM RIGHTEYE SCH (21:44)
[2020-02-02] MEDS: ENOXAPARIN SODIUM 40 MG/0.4 ML DISP.SYRIN SQ SCH (21:45)
[2020-02-03] VITALS: BP 116/54
[2020-02-03 04:00] VITALS: BP 122/53
[2020-02-03 06:01] LABS: BASOPHILS # (AUTO) 0.1 /CMM (0.0-0.2); BASOPHILS % (AUTO) 1.4 % (0.0-2.0); HEMATOCRIT 35 % (33-45); HEMOGLOBIN 11.5 g/dL (11.5-14.8); LYMPHOCYTES # (AUTO) 1.6 /CMM (0.8-4.8); LYMPHOCYTES % (AUTO) 15.3 % (20.0-44.0); MEAN CORPUSCULAR HGB CONC 33 g/dl (31.0-36.0); MEAN CORPUSCULAR VOLUME 86 fL (82-100); MONOCYTES # (AUTO) 0.7 /CMM (0.1-1.30); MONOCYTES % (AUTO) 6.4 % (2.0-12.0); NEUTROPHILS # (AUTO) 7.6 /CMM (1.8-8.9); NEUTROPHILS % (AUTO) 72.9 % (43.0-81.0); PLATELET COUNT (AUTO) 253 /CMM (150-450); RED BLOOD CELL COUNT(AUTO) 4.04 MIL/uL (4.0-5.2); WHITE BLOOD COUNT (AUTO) 10.4 K/uL (4.3-11.0)
[2020-02-03 06:20] LABS: CALCIUM, SERUM 7.8 mg/dL (8.5-10.1); CREATININE 0.6 mg/dL (0.6-1.3); POTASSIUM 3.5 mmol/L (3.5-5.1)
--- NOTE | 2020-02-03 07:33 | NUR ---
DOCUMENT IMAGING SPECIALIST CLOSING NOTES PATIENT SLEEPING. A/OX4. ON 55L/MIN HIGH FLOW O2; NO S/S OF ACUTE RESPIRATORY DISTRESS; BREATHING IS EVEN AND UNLABORED; CONTINUOUS PULSE OX READING 97%. TELE MONITOR READING SINUS RHYTHM WITH PVCS. IV ON RIGHT FA, SIZE 20, REMAINS INTACT & PATENT, HEP LOCKED. SAFETY MEASURES IN PLACE AND PATIENT'S NEEDS MET. BED LOCKED, HOB ELEVATED, SIDE RAILS X2, CALL LIGHT WITHIN REACH. ENDORSED TO DAY SHIFT RN PLAN OF CARE.
--- NOTE | 2020-02-03 07:40 | NUR ---
DEPUTY DIRECTOR OF PUBLIC WORKS OPENING NOTES RECEIVED PT ON BED, AAOX4, ON O2 AT HIGH FLOW 45 LPM, SATING 96% ON CONT MONITORING. NO PRESENCE OF ACUTE RESPIRATORY DISTRESS. ABD SOFT AND NON DISTENDED. DENIES PAIN AND DISCOMFORT. SKIN WARM TO TOUCH AND DRY. ON ISOLATION FOR + COVID19, PPE UTILIZED PER PROTOCOL. IV AT RIGHT FA #20 H/L PATENT IN FLUSHING, NO S/SX OF INFILTRATION. TELE MONITOR SHOWS SR WITH PVC 77. CONT TO MONITOR CARE.
[2020-02-03] MEDS: PANTOPRAZOLE 40 MG TABLET.DR PO SCH (07:45)
[2020-02-03] MEDS: CARVEDILOL 3.125 MG TABLET PO SCH ×2 (09:00→16:52)
[2020-02-03] MEDS: ZINC SULFATE 220 MG CAPSULE PO SCH (09:25)
[2020-02-03] MEDS: EZETIMIBE 10 MG TABLET PO SCH (09:25)
[2020-02-03] MEDS: ASPIRIN EC 81 MG TABLET.DR PO SCH (09:25)
[2020-02-03] MEDS: ENSURE ENLIVE 237 ML LIQUID (VANILLA) PO SCH ×3 (09:26→16:53)
[2020-02-03] MEDS: ICOSAPENT ETHYL 2 GM PO SCH ×2 (09:26→16:53)
[2020-02-03] MEDS: Brinzolamide/Brimonid Tart (Simbrinza 1%-0.2% Eye Drops RIGHTEYE SCH ×2 (09:27→16:53)
[2020-02-03] MEDS: DIFLUPREDNATE RIGHTEYE SCH (09:27)
--- NOTE | 2020-02-03 09:54 | NUR ---
EQUITIES TRADER NOTES CARVEDILOL HELD DUE AT 9AM DUE TO BP OF 142/56, HR 57.
[2020-02-03 10:33] VITALS: BP 142/56
[2020-02-03 13:15] VITALS: BP 122/49
--- NOTE | 2020-02-03 16:53 | NUR ---
BOAT CANVAS MAKER AND INSTALLER NOTES CARVEDILOL NOT GIVEN DUE TO LOW DBP. BP OF 136/52, HR 71.CONT TO MONITOR
[2020-02-03 16:54] VITALS: BP 136/52
--- NOTE | 2020-02-03 19:32 | NUR ---
BRAKE REPAIRER AIR CLOSING NOTES PT AAOX4, RESPONSIVE TO ALL STIMULI. TOLERATING O2 AT HF 45 LPM SATING >92%, NO PRESENCE OF ACUTE RESPIRATORY DISTRESS. NO CRITICAL CHANGE OF CONDITION. TELE MONITOR SHOWS NSR WITH PVC. PT COVID-19 POSITIVE, PPE UTILIZED PER HOSPITAL PROTOCOL. ALL CONCERNS ATTENDED. BED IN LOW LOCKED, SRX2 UP FOR SAFETY, CALL LIGHT WITHIN REACHED. ENDORSED CARE TO NEXT SHIFT.
[2020-02-03 20:00] VITALS: BP 110/57
[2020-02-03] MEDS: ACETAMINOPHEN 325 MG TABLET PO PRN (21:27)
[2020-02-03] MEDS: ENOXAPARIN SODIUM 40 MG/0.4 ML DISP.SYRIN SQ SCH (21:28)
[2020-02-03] MEDS: IV D5/ 0.9% NACL 1,000 ML IV PRN (21:28)
[2020-02-03] MEDS: BROMFENAC SODIUM RIGHTEYE SCH (22:09)
[2020-02-04] VITALS (7 sets, daily range): BP systolic 107–135; BP diastolic 44–57
[2020-02-04] MEDS: ACETAMINOPHEN 325 MG TABLET PO PRN (03:28)
[2020-02-04 06:36] LABS: BASOPHILS # (AUTO) 0.1 /CMM (0.0-0.2); BASOPHILS % (AUTO) 0.9 % (0.0-2.0); EOSINOPHILS % (AUTO) 3.2 % (0.0-6.0); HEMATOCRIT 35 % (33-45); HEMOGLOBIN 11.7 g/dL (11.5-14.8); LYMPHOCYTES # (AUTO) 1.3 /CMM (0.8-4.8); LYMPHOCYTES % (AUTO) 12.6 % (20.0-44.0); MEAN CORPUSCULAR HGB CONC 33 g/dl (31.0-36.0); MEAN CORPUSCULAR VOLUME 86 fL (82-100); MONOCYTES # (AUTO) 0.6 /CMM (0.1-1.30); MONOCYTES % (AUTO) 5.8 % (2.0-12.0); NEUTROPHILS # (AUTO) 7.7 /CMM (1.8-8.9); NEUTROPHILS % (AUTO) 77.5 % (43.0-81.0); PLATELET COUNT (AUTO) 244 /CMM (150-450); RED BLOOD CELL COUNT(AUTO) 4.12 MIL/uL (4.0-5.2)
[2020-02-04 06:52] LABS: CREATININE 0.6 mg/dL (0.6-1.3); POTASSIUM 3.5 mmol/L (3.5-5.1)
--- NOTE | 2020-02-04 07:28 | NUR ---
RN NOTE PT STAYED STABLE DURING MY SHIFT,REPORT GIVEN TO INCOMING SHIFT FOR NABIL.
--- NOTE | 2020-02-04 07:30 | NUR ---
RN NOTE PT LYING IN BED AWAKE, AOX4, ON HIGH FLOW O2 45 LPM, SATING AT 97% WITH NO SIGNS OF RESP OR SOB, BREATHING EVEN AND UNLABORED. DENIES PAIN OR DISCOMFORT AT THIS TIME. PT HAS RIGHT FA #20 H/L AND RT HAND #20 INFUSING, BOTH PATENT WITH NO SIGNS OF INFILTRATION OR INFECTION. ALL SAFETY PRECAUTIONS IN PLACE. WILL CONTINUE TO MONITOR
[2020-02-04] MEDS: ENSURE ENLIVE 237 ML LIQUID (VANILLA) PO SCH ×3 (09:00→17:11)
[2020-02-04] MEDS: CARVEDILOL 3.125 MG TABLET PO SCH ×2 (11:12→17:11)
[2020-02-04] MEDS: ZINC SULFATE 220 MG CAPSULE PO SCH (11:13)
[2020-02-04] MEDS: EZETIMIBE 10 MG TABLET PO SCH (11:13)
[2020-02-04] MEDS: ASPIRIN EC 81 MG TABLET.DR PO SCH (11:13)
[2020-02-04] MEDS: PANTOPRAZOLE 40 MG TABLET.DR PO SCH (11:13)
[2020-02-04] MEDS: ICOSAPENT ETHYL 2 GM PO SCH ×2 (11:14→16:39)
[2020-02-04] MEDS: DIFLUPREDNATE RIGHTEYE SCH (11:16)
[2020-02-04] MEDS: Brinzolamide/Brimonid Tart (Simbrinza 1%-0.2% Eye Drops RIGHTEYE SCH ×2 (11:16→17:11)
--- NOTE | 2020-02-04 12:30 | NUR ---
RN NOTE PT LYING IN BED COMFORTABLY. NO SIGNS OF RESP DISTRESS TO SOB. PT DENIES PAIN.
--- NOTE | 2020-02-04 17:11 | NUR ---
RN NOTE PER LEIDA ROJAS TO GIVE COREG 3.125MG WITH BP 107/44 AND HR 77
--- NOTE | 2020-02-04 19:00 | NUR ---
RN NOTE PT IN STABLE CONDITION. NO SIGNS OF RESP DISTRESS OR SOB, BREATHING IS EVEN AND UNLABORED, SPO2 AT 97%. NO CHANGES TO PT CONDITION DURING SHIFT. ALL SAFETY PRECAUTIONS IN PLACE. WILL ENDORSE NABIL TO ONCOMING NURSE
--- NOTE | 2020-02-04 19:30 | NUR ---
RN OPENING NOTE RECEIVED PATIENT IN BED RESTING ALERT ORIENTED X4 ,ABLE TO MAKE NEEDS KNOWN,ON 45L HIGH FLOW OXYGEN O2:96% COVID POSITIVE ON MONITORING FOR DROPLET/CONTACT ISOLATION, IV SITE IS ON RIGHT HAND INTACT PATENT ON IV HYDRATION D5NS 40CC/HR RUNNING,SAFETY MEASURE IMPLEMENT,CALL LIGHT WITHIN REACH,BED IS IN LOW POSITION AND LOCKED CONTINUE TO MONITOR
[2020-02-04] MEDS: ENOXAPARIN SODIUM 40 MG/0.4 ML DISP.SYRIN SQ SCH (22:24)
[2020-02-04] MEDS: BROMFENAC SODIUM RIGHTEYE SCH (22:32)
[2020-02-05] VITALS: BP 123/51
[2020-02-05] MEDS: ACETAMINOPHEN 325 MG TABLET PO PRN (00:02)
[2020-02-05 04:00] VITALS: BP 134/56
[2020-02-05] MEDS: IV D5/ 0.9% NACL 1,000 ML IV PRN (05:21)
[2020-02-05 06:03] LABS: BASOPHILS # (AUTO) 0.1 /CMM (0.0-0.2); BASOPHILS % (AUTO) 0.8 % (0.0-2.0); EOSINOPHILS % (AUTO) 3.7 % (0.0-6.0); HEMATOCRIT 33 % (33-45); HEMOGLOBIN 10.9 g/dL (11.5-14.8); LYMPHOCYTES # (AUTO) 1.1 /CMM (0.8-4.8); LYMPHOCYTES % (AUTO) 12.9 % (20.0-44.0); MEAN CORPUSCULAR HGB CONC 33 g/dl (31.0-36.0); MEAN CORPUSCULAR VOLUME 86 fL (82-100); MONOCYTES # (AUTO) 0.6 /CMM (0.1-1.30); NEUTROPHILS # (AUTO) 6.4 /CMM (1.8-8.9); NEUTROPHILS % (AUTO) 75.6 % (43.0-81.0); PLATELET COUNT (AUTO) 227 /CMM (150-450); RED BLOOD CELL COUNT(AUTO) 3.83 MIL/uL (4.0-5.2); WHITE BLOOD COUNT (AUTO) 8.5 K/uL (4.3-11.0)
[2020-02-05 06:19] LABS: CALCIUM, SERUM 7.8 mg/dL (8.5-10.1); CREATININE 0.7 mg/dL (0.6-1.3); POTASSIUM 3.4 mmol/L (3.5-5.1)
--- NOTE | 2020-02-05 06:47 | NUR ---
RN CLOSING NOTE PATIENT REMAINS ON ALERT ORIENTED X4 VERBALLY RESPONSIVE ON 45L HIGH FLOW OXYGEN O2:94% IV SITE IS ON RIGHT HAND INTACT PATEINT ON IV HYDRATION D5NS 40CC/HR ALL DUE MEDS GIVEN MD ORDERED KEPT CLEAN AND DRY ALL THE TIME,KEPT COMFORTABLE,KEPT CALL LIGHT WITHIN REACH,ENDORSE NEXT COMING SHIFT FOR CONTINUATION OF CARE.
[2020-02-05 08:00] VITALS: BP 140/57
[2020-02-05] MEDS: ERGOCALCIFEROL (VITAMIN D 2) 50,000 UNIT CAPSULE PO SCH (09:45)
[2020-02-05] MEDS: ZINC SULFATE 220 MG CAPSULE PO SCH (09:46)
[2020-02-05] MEDS: EZETIMIBE 10 MG TABLET PO SCH (09:46)
[2020-02-05] MEDS: ICOSAPENT ETHYL 2 GM PO SCH ×2 (09:46→16:38)
[2020-02-05] MEDS: CARVEDILOL 3.125 MG TABLET PO SCH ×2 (09:48→16:37)
[2020-02-05] MEDS: ASPIRIN EC 81 MG TABLET.DR PO SCH (09:48)
[2020-02-05] MEDS: PANTOPRAZOLE 40 MG TABLET.DR PO SCH (09:55)
[2020-02-05] MEDS ORDERED: POTASSIUM CHLORIDE 20 MEQ TAB.PRT.SR PO ONE (10:00)
[2020-02-05] MEDS: ENSURE ENLIVE 237 ML LIQUID (VANILLA) PO SCH ×3 (10:05→17:36)
[2020-02-05] MEDS: DIFLUPREDNATE RIGHTEYE SCH ×2 (10:05→10:06)
[2020-02-05] MEDS: Brinzolamide/Brimonid Tart (Simbrinza 1%-0.2% Eye Drops RIGHTEYE SCH ×2 (10:20→16:40)
--- NOTE | 2020-02-05 11:39 | NUR ---
RN OPENING NOTE PATIENT IS IN BED RESTING COMFORTABLE. PATIENT IN NO CUTE DISTRESS. PATIENT IS ON 40L HIGH FLOW OXYGEN, OXYGEN SATURATION IS 98%. PATIENT IS ON COMMERCIAL ACCOUNT EXECUTIVE READING SR WITH PVC 70s. PATIENT BED ALARM IS ON. SAFETY PRECAUTIONS ARE IN PLACE. PATIENT BED IS LOCKED AND IN LOWEST POSITION. CALL LIGHT WITHIN REACH. WILL CONTINUE TO MONITOR.
[2020-02-05 12:00] VITALS: BP 148/55
[2020-02-05 16:00] VITALS: BP 131/76
--- NOTE | 2020-02-05 18:48 | NUR ---
RN CLOSING NOTE PATIENT IS IN BED RESTING COMFORTABLY. PATIENT IS IN NO ACUTE DISTRESS. PATIENT IS ON HIGH FLOW 40L OXYGEN, WITH OXYGEN LEVEL 97%. PATIENT IS ON QUALITY ASSURANCE ANALYST READING SR WITH PVC IN 70S. PATIENT KEPT CLEAN, DRY AND COMFORTABLE THROUGHOUT THE SHIFT. PATIENTS NEEDS WERE ADDRESSED. PATIENT BED IS LOCKED AND IN LOWEST POSITION. CALL LIGHT WITHIN REACH. ENDORSE TO THE HOG FEEDER NURSE FOR NABIL.
[2020-02-05 20:00] VITALS: BP 119/48
--- NOTE | 2020-02-05 20:00 | NUR ---
supervisor telephone clerks note Received in bed, a/o x4. Breathing even and unlabored with no sob or acute distress noted on 55L of O2 via high flow.NSR on residential monitor.HR 77. Denies any pain or discomfort.RH #20 patent and intact. IV fluids infusing well. All needs rendered. Call light within reach. Bed in lowest position. Will continue to monitor.
[2020-02-05] MEDS: BROMFENAC SODIUM RIGHTEYE SCH (21:21)
[2020-02-05] MEDS: ENOXAPARIN SODIUM 40 MG/0.4 ML DISP.SYRIN SQ SCH (21:22)
[2020-02-06] VITALS: BP 126/51
[2020-02-06] MEDS: GUAIFENESIN/D-METHORPHAN HB 5 ML UDC PO PRN (00:14)
[2020-02-06 04:00] VITALS: BP 116/50
[2020-02-06 06:02] LABS: BASOPHILS # (AUTO) 0.1 /CMM (0.0-0.2); BASOPHILS % (AUTO) 0.5 % (0.0-2.0); EOSINOPHILS % (AUTO) 2.9 % (0.0-6.0); HEMATOCRIT 35 % (33-45); HEMOGLOBIN 11.7 g/dL (11.5-14.8); LYMPHOCYTES # (AUTO) 1.1 /CMM (0.8-4.8); LYMPHOCYTES % (AUTO) 10.6 % (20.0-44.0); MEAN CORPUSCULAR HGB CONC 33 g/dl (31.0-36.0); MEAN CORPUSCULAR VOLUME 86 fL (82-100); MONOCYTES # (AUTO) 0.7 /CMM (0.1-1.30); MONOCYTES % (AUTO) 6.3 % (2.0-12.0); NEUTROPHILS # (AUTO) 8.3 /CMM (1.8-8.9); NEUTROPHILS % (AUTO) 79.7 % (43.0-81.0); PLATELET COUNT (AUTO) 215 /CMM (150-450); WHITE BLOOD COUNT (AUTO) 10.4 K/uL (4.3-11.0)
[2020-02-06 06:20] LABS: CALCIUM, SERUM 7.9 mg/dL (8.5-10.1); CARBON DIOXIDE 26 mmol/L (21-32); CHLORIDE 109 mmol/L (98-107); CREATININE 0.5 mg/dL (0.6-1.3); GLUCOSE 112 mg/dL (74-106); MAGNESIUM 1.9 mg/dL (1.8-2.4); PHOSPHORUS 3.5 mg/dL (2.5-4.9); POTASSIUM 3.7 mmol/L (3.5-5.1); SODIUM SERUM 142 mmol/L (136-145); UREA NITROGEN, BLOOD 9 mg/dL (7-18)
--- NOTE | 2020-02-06 06:25 | NUR ---
kinesiology internship note Patient in bed. A/O x4. Breathing even and unlabored with no sob or acute distress noted on 55L of o2 via high flow nasal cannula. O2 saturation 96%. NSR , sinus acacia hr 52 with pvc on school bus monitor. Denies pain or discomfort. RH iv site patent and intact. All needs rendered. Bed in lowest position. Call light within reach. Will endorse to am nurse for continuity of care.
[2020-02-06] MEDS: PANTOPRAZOLE 40 MG TABLET.DR PO SCH (06:33)
--- NOTE | 2020-02-06 08:00 | NUR ---
DOLL WIG HACKLER NOTES Patient is alert and oriented x 4. She is breathing even and unlabored. On 55 liters of 02 via high flow via n/c. 02 saturation of 96%. Resident did not c/o any pain or discomfort. All needs met. Bed is in the lowest position. Call light within reach. Will continue to monitor.
[2020-02-06] MEDS: ICOSAPENT ETHYL 2 GM PO SCH ×2 (09:47→17:56)
[2020-02-06] MEDS: EZETIMIBE 10 MG TABLET PO SCH (09:48)
[2020-02-06] MEDS: ASPIRIN EC 81 MG TABLET.DR PO SCH (09:48)
[2020-02-06] MEDS: ZINC SULFATE 220 MG CAPSULE PO SCH (09:48)
[2020-02-06] MEDS: DIFLUPREDNATE RIGHTEYE SCH (09:49)
[2020-02-06] MEDS: ENSURE ENLIVE 237 ML LIQUID (VANILLA) PO SCH ×3 (09:49→17:00)
[2020-02-06] MEDS: Brinzolamide/Brimonid Tart (Simbrinza 1%-0.2% Eye Drops RIGHTEYE SCH ×2 (09:49→17:57)
[2020-02-06] MEDS: CARVEDILOL 3.125 MG TABLET PO SCH ×2 (09:49→17:56)
[2020-02-06 16:00] VITALS: BP 128/56
--- NOTE | 2020-02-06 19:00 | NUR ---
SUBSTATION DESIGNER NOTES Patient is alert and oriented X 4. Patient is on high flow 02 55liters with 02 sat 95-99% and no respiratory distress noted. Patient is on monitor showing SR. Patient ate 75 % of meals from home. Patient refused prescribed Ensure drinks. Patient has right forearm 20 gauze and infusing well, no s/s of infiltration and infection. Patient's right hand IV dislodged and removed. Bed in the lowest position. All safety measures taken place. Report given to Frederick for continuation of care.
[2020-02-06 20:00] VITALS: BP 114/72
--- NOTE | 2020-02-06 20:00 | NUR ---
residential carpet installer Opening note Received pt in bed, a/o x4. Breathing even and unlabored in high flow 55L 90%Fio2. 02 saturation 97%. No sob or acute distress noted. Sinus Rhythm of manager cardiac cath. HR 86. Denies any pain or discomfort. RFA #20 patent and intact. IV fluids infusing well. All needs rendered. Call light within reach. Bed in lowest position. Will continue to monitor
[2020-02-06] MEDS: BROMFENAC SODIUM RIGHTEYE SCH (21:43)
[2020-02-06] MEDS: ENOXAPARIN SODIUM 40 MG/0.4 ML DISP.SYRIN SQ SCH (21:44)
[2020-02-06] MEDS: ACETAMINOPHEN 325 MG TABLET PO PRN (22:52)
[2020-02-07] VITALS: BP 110/63
[2020-02-07 04:00] VITALS: BP 111/69
[2020-02-07] MEDS: PANTOPRAZOLE 40 MG TABLET.DR PO SCH (06:34)
--- NOTE | 2020-02-07 06:36 | NUR ---
sap consultant Closing note Pt in bed, asleep but easily arousable. Breathing even and unlabored in high flow 55L 88fio2%. Sinus Rhythm on marine engineer. HR 70. O2 saturation at 97%. Denies any pain or discomfort. Right forearm IV site patent and intact. IV fluids infusing well. All needs rendered. Call light within reach. Will endorse to am nurse for continuity of care.
--- NOTE | 2020-02-07 07:37 | NUR ---
TELE/RN OPENING NOTES RECEIVED PATIENT ON BED ALERT AND ORIENTED X4. PATIENT IN NO APPARENT RESPIRATORY DISTRESS NOTED. NO SIGN AND SYMPTOM OF PAIN AT THIS TIME. TELE MONITOR. IN PLACED READING SINUS RHYTHM 70 BPM with PVC. WILL CONTINUE TO MONITOR.
[2020-02-07 08:00] VITALS: BP 125/40
[2020-02-07] MEDS: ZINC SULFATE 220 MG CAPSULE PO SCH (08:59)
[2020-02-07] MEDS: EZETIMIBE 10 MG TABLET PO SCH (08:59)
[2020-02-07] MEDS: CARVEDILOL 3.125 MG TABLET PO SCH ×2 (09:00→17:35)
[2020-02-07] MEDS: ENSURE ENLIVE 237 ML LIQUID (VANILLA) PO SCH ×3 (09:00→17:00)
[2020-02-07] MEDS: ASPIRIN EC 81 MG TABLET.DR PO SCH (09:00)
[2020-02-07] MEDS: ICOSAPENT ETHYL 2 GM PO SCH ×2 (09:01→17:47)
[2020-02-07] MEDS: Brinzolamide/Brimonid Tart (Simbrinza 1%-0.2% Eye Drops RIGHTEYE SCH ×2 (09:03→17:43)
[2020-02-07] MEDS: DIFLUPREDNATE RIGHTEYE SCH (09:03)
[2020-02-07 12:00] VITALS: BP 127/52
[2020-02-07 16:00] VITALS: BP 128/50
[2020-02-07] MEDS: IV D5/ 0.9% NACL 1,000 ML IV PRN (17:41)
--- NOTE | 2020-02-07 18:58 | NUR ---
TELE/RN CLOSING NOTES PATIENT IS ON BED ALERT AND ORIENTED X4. PATIENT IN NO APPARENT RESPIRATORY DISTRESS NOTED. NO COMPLAINED OF PAIN. NOTED AT THIS TIME. IV ACCESS AT RIGHT FOREARM # 20 WITH IV FLUID OF D5NS 1L AT 40 L/MIN ON AND INFUSING WELL. TELE MONITOR IN PLACED SINUS RHYTHM 76 BPM. SEEN AND EXAMINED BY MD WITH ORDERS MADE AND CARRIED OUT. ALL DUE MEDICATIONS WAS GIVEN. SAFETY PRECAUTIONS WAS IN PLACED . SIDE RAILS UP X2. CALL LIGHT WITHIN REACH. WILL ENDORSED TO CASING RUNNING MACHINE TENDER FOR NABIL.
[2020-02-07 20:00] VITALS: BP 111/50
--- NOTE | 2020-02-07 20:59 | NUR ---
call back made to omar irene. left message with update. left call back number.
--- NOTE | 2020-02-07 23:00 | NUR ---
SPOKE WITH RAMOS NELSON; UPDATED ON PATIENT CONDITION.
[2020-02-07] MEDS: ENOXAPARIN SODIUM 40 MG/0.4 ML DISP.SYRIN SQ SCH (23:22)
[2020-02-07] MEDS: BROMFENAC SODIUM RIGHTEYE SCH (23:24)
[2020-02-08 00:25] VITALS: BP 140/50
[2020-02-08 04:00] VITALS: BP 144/56
[2020-02-08] MEDS: ACETAMINOPHEN 325 MG TABLET PO PRN (05:19)
[2020-02-08] MEDS: ONDANSETRON HCL/PF 4 MG/2 ML VIAL IVP PRN ×2 (05:19→11:17)
--- NOTE | 2020-02-08 05:19 | NUR ---
PT C/O NAUSEA; ZOFRAN ADMINISTERED PRN ORDERED PER PT REQUEST.
[2020-02-08 06:41] LABS: BASOPHILS # (AUTO) 0.1 /CMM (0.0-0.2); BASOPHILS % (AUTO) 0.9 % (0.0-2.0); EOSINOPHILS % (AUTO) 3.6 % (0.0-6.0); HEMATOCRIT 31 % (33-45); HEMOGLOBIN 10.5 g/dL (11.5-14.8); LYMPHOCYTES # (AUTO) 1.1 /CMM (0.8-4.8); LYMPHOCYTES % (AUTO) 12.4 % (20.0-44.0); MEAN CORPUSCULAR HGB CONC 33 g/dl (31.0-36.0); MEAN CORPUSCULAR VOLUME 86 fL (82-100); MONOCYTES # (AUTO) 0.7 /CMM (0.1-1.30); MONOCYTES % (AUTO) 8.1 % (2.0-12.0); NEUTROPHILS # (AUTO) 6.4 /CMM (1.8-8.9); PLATELET COUNT (AUTO) 174 /CMM (150-450); RED BLOOD CELL COUNT(AUTO) 3.63 MIL/uL (4.0-5.2); WHITE BLOOD COUNT (AUTO) 8.5 K/uL (4.3-11.0)
[2020-02-08] MEDS ORDERED: KEY,NONCONTROL,TO KEEP IN PYXI 1 EA MC ONE (06:43)
[2020-02-08 07:06] LABS: CALCIUM, SERUM 8.5 mg/dL (8.5-10.1); CARBON DIOXIDE 26 mmol/L (21-32); CHLORIDE 108 mmol/L (98-107); CREATININE 0.4 mg/dL (0.6-1.3); GLUCOSE 98 mg/dL (74-106); MAGNESIUM 1.8 mg/dL (1.8-2.4); PHOSPHORUS 3.4 mg/dL (2.5-4.9); POTASSIUM 3.4 mmol/L (3.5-5.1); SODIUM SERUM 142 mmol/L (136-145); UREA NITROGEN, BLOOD 8 mg/dL (7-18)
--- NOTE | 2020-02-08 07:59 | NUR ---
TELE/RN OPENING NOTES RECEIVED PATIENT ON BED ALERT AND ORIENTED X4. PATIENT IN NO APPARENT RESPIRATORY DISTRESS NOTED. NO COMPLAINED OF PAIN AT THIS TIME. TELE MONITOR IN PLACED READING SINUS RHYTHM WITH PVC BBB 62 BPM with PVC. WILL CONTINUE TO MONITOR.
[2020-02-08 08:00] VITALS: BP 127/60
[2020-02-08] MEDS: ASPIRIN EC 81 MG TABLET.DR PO SCH (08:50)
[2020-02-08] MEDS: PANTOPRAZOLE 40 MG TABLET.DR PO SCH (08:50)
[2020-02-08] MEDS: EZETIMIBE 10 MG TABLET PO SCH (08:50)
[2020-02-08] MEDS: ZINC SULFATE 220 MG CAPSULE PO SCH (08:50)
[2020-02-08] MEDS: POTASSIUM CHLORIDE 20 MEQ TAB.PRT.SR PO SCH ×3 (08:51→11:17)
[2020-02-08] MEDS: CARVEDILOL 3.125 MG TABLET PO SCH ×2 (08:51→17:34)
[2020-02-08] MEDS: ENSURE ENLIVE 237 ML LIQUID (VANILLA) PO SCH ×3 (08:52→17:00)
[2020-02-08] MEDS: Brinzolamide/Brimonid Tart (Simbrinza 1%-0.2% Eye Drops RIGHTEYE SCH ×2 (09:38→17:36)
[2020-02-08] MEDS: DIFLUPREDNATE RIGHTEYE SCH (09:39)
[2020-02-08] MEDS: ICOSAPENT ETHYL 2 GM PO SCH ×2 (09:43→17:34)
[2020-02-08 12:00] VITALS: BP 112/63
[2020-02-08 16:00] VITALS: BP 124/51
[2020-02-08] MEDS: IV D5/ 0.9% NACL 1,000 ML IV PRN (17:40)
--- NOTE | 2020-02-08 19:33 | NUR ---
TELE/RN CLOSING NOTES PATIENT IS ON BED AWAKE ALERT AND ORIENTED X4. PATIENT IN NO APPARENT RESPIRATORY DISTRESS NOTED. NO COMPLAINED OF PAIN NOTED AT THIS TIME. SEEN AND EXAMINED BY MD WITH ORDERS MADE AND CARRIED OUT. ALL DUE MEDICATION WAS GIVE. ON TELE MONITOR READING SINUS RHYTHM WITH PVC WITH OCCASIONAL BBB 71 BPM. SAFETY PRECAUTIONS WAS IN PLACED. SIDE RAILS UP X 2. CALL LIGHT WITHIN REACH. WILL ENDORSED TO HEALTH UNIT COORDINATOR FOR NABIL.
[2020-02-08 20:00] VITALS: BP_SYST 119; BP_SYST 127; BP_DIAS 55; BP_DIAS 60
[2020-02-08] MEDS: ENOXAPARIN SODIUM 40 MG/0.4 ML DISP.SYRIN SQ SCH (22:31)
[2020-02-08] MEDS: BROMFENAC SODIUM RIGHTEYE SCH (22:35)
[2020-02-09] VITALS: BP 117/48
[2020-02-09] MEDS: ACETAMINOPHEN 325 MG TABLET PO PRN ×2 (00:31→22:33)
[2020-02-09 04:00] VITALS: BP 125/61
[2020-02-09 07:42] LABS: BASOPHILS # (AUTO) 0.1 /CMM (0.0-0.2); BASOPHILS % (AUTO) 0.7 % (0.0-2.0); EOSINOPHILS % (AUTO) 4.6 % (0.0-6.0); HEMATOCRIT 34 % (33-45); LYMPHOCYTES # (AUTO) 1.2 /CMM (0.8-4.8); LYMPHOCYTES % (AUTO) 14.5 % (20.0-44.0); MEAN CORPUSCULAR HGB CONC 33 g/dl (31.0-36.0); MEAN CORPUSCULAR VOLUME 88 fL (82-100); MONOCYTES # (AUTO) 0.6 /CMM (0.1-1.30); MONOCYTES % (AUTO) 7.4 % (2.0-12.0); NEUTROPHILS # (AUTO) 6.3 /CMM (1.8-8.9); NEUTROPHILS % (AUTO) 72.8 % (43.0-81.0); PLATELET COUNT (AUTO) 157 /CMM (150-450); RED BLOOD CELL COUNT(AUTO) 3.83 MIL/uL (4.0-5.2); WHITE BLOOD COUNT (AUTO) 8.6 K/uL (4.3-11.0)
--- NOTE | 2020-02-09 07:45 | NUR ---
LACE PAPER MACHINE OPERATOR OPENING NOTES RECEIVED PATIENT RESTING IN BED, A/OX4. NO APPARENT RESPIRATORY DISTRESS NOTED. NO C/P OF PAIN OR DISCOMFORT AT THIS TIME. TELE MONITOR IN PLACED READING SINUS RHYTHM WITH PVC BBB AND HR IN THE 80'S BED AT LOWEST AND LOCKED POSITION WITH CALL LIGHT WITH IN REACH. WILL CONTINUE TO MONITOR THROUGH SHIFT
[2020-02-09] MEDS: PANTOPRAZOLE 40 MG TABLET.DR PO SCH (07:57)
[2020-02-09 08:00] VITALS: BP 115/53
[2020-02-09 08:16] LABS: CARBON DIOXIDE 25 mmol/L (21-32); CHLORIDE 109 mmol/L (98-107); CREATININE 0.5 mg/dL (0.6-1.3); GLUCOSE 95 mg/dL (74-106); SODIUM SERUM 142 mmol/L (136-145); UREA NITROGEN, BLOOD 9 mg/dL (7-18)
[2020-02-09] MEDS: Brinzolamide/Brimonid Tart (Simbrinza 1%-0.2% Eye Drops RIGHTEYE SCH ×2 (09:00→16:42)
[2020-02-09] MEDS: ENSURE ENLIVE 237 ML LIQUID (VANILLA) PO SCH ×3 (09:00→16:42)
[2020-02-09] MEDS: DIFLUPREDNATE RIGHTEYE SCH (09:00)
[2020-02-09] MEDS: ASPIRIN EC 81 MG TABLET.DR PO SCH (10:07)
[2020-02-09] MEDS: EZETIMIBE 10 MG TABLET PO SCH (10:08)
[2020-02-09] MEDS: ZINC SULFATE 220 MG CAPSULE PO SCH (10:08)
[2020-02-09] MEDS: CARVEDILOL 3.125 MG TABLET PO SCH ×2 (10:08→16:42)
[2020-02-09] MEDS: POTASSIUM CHLORIDE 20 MEQ TAB.PRT.SR PO SCH (10:08)
[2020-02-09] MEDS: ICOSAPENT ETHYL 2 GM PO SCH ×2 (10:10→16:42)
[2020-02-09 12:00] VITALS: BP 119/51
[2020-02-09] MEDS: ONDANSETRON HCL/PF 4 MG/2 ML VIAL IVP PRN (12:46)
[2020-02-09 16:00] VITALS: BP 109/58
--- NOTE | 2020-02-09 18:05 | NUR ---
OPEN SOURCE DEVELOPER CLOSING NOTES PATIENT RESTING IN BED A/OX4. IN NO APPARENT RESPIRATORY DISTRESS. NO C/O PAIN OR DISCOMFORT AT THIS TIME. SEEN AND EXAMINED BY MD WITH ORDERS MADE AND CARRIED OUT. ALL DUE MEDICATION WAS GIVE. ON TELE MONITOR READING SINUS RHYTHM WITH PVC WITH OCCASIONAL BBB 80'S BPM. SAFETY PRECAUTIONS WAS IN PLACED. SIDE RAILS UP X 2. CALL LIGHT WITHIN REACH. WILL ENDORSED TO ONCOMING SHIFT
--- NOTE | 2020-02-09 19:30 | NUR ---
TELE/RN OPENING NOTES RECEIVED PATIENT RESTING IN BED. PATIENT IN ON HIGH FLOW OXYGEN TOLERATING SETTING WELL. NO SIGNS OF SOB OR RESPIRATORY DISTRESS NOTED. BREATHING IS EVEN AND UNLABORED. PATIENT IN NO SIGNS OF DISTRESS. PATIENT HAS IV ACCESS ON LEFT HAND #22G RUNNING D5 NS AT 40 ML/HR. SAFETY MEASURES ARE IN PLACE, BED IS LOCKED AND PLACED IN THE LOW POSITION, SIDE RAILS UP X 2. CALL LIGHT IS WITHIN REACH. WILL MONITOR THROUGH OUT SHIFT.
[2020-02-09 20:00] VITALS: BP 139/58
[2020-02-09] MEDS: ENOXAPARIN SODIUM 40 MG/0.4 ML DISP.SYRIN SQ SCH (21:20)
[2020-02-09] MEDS: BROMFENAC SODIUM RIGHTEYE SCH (21:22)
[2020-02-10 04:00] VITALS: BP 137/66
[2020-02-10] MEDS: IV D5/ 0.9% NACL 1,000 ML IV PRN (06:08)
--- NOTE | 2020-02-10 06:35 | NUR ---
TELE/RN CLOSING NOTES PATIENT SLEEPING IN BED. PATIENT IS ON HIGH FLOW OXYGEN TOLERATING SETTING WELL. NO SIGNS OF SOB OR RESPIRATORY DISTRESS NOTED. BREATHING IS EVEN AND UNLABORED. PATIENT IN NO SIGNS OF DISTRESS. PATIENT HAS IV ACCESS ON LEFT HAND #22G RUNNING D5 NS AT 40 ML/HR. ALL NEED HAVE BEEN MET DURING SHIFT. SAFETY MEASURES ARE IN PLACE, BED IS LOCKED AND PLACED IN THE LOW POSITION, SIDE RAILS UP X 2. CALL LIGHT IS WITHIN REACH. WILL ENDORSE CARE TO DAY SHIFT NURSE.
--- NOTE | 2020-02-10 07:30 | NUR ---
RN OPENING NOTES PATIENT SLEEPING IN BED. PATIENT CURRENTLY ON HIGH FLOW OXYGEN AT 50%, TOLERATING SETTING WELL. NO SIGNS OF SOB OR RESPIRATORY DISTRESS NOTED. BREATHING IS EVEN AND UNLABORED. PATIENT IN NO SIGNS OF DISTRESS. PATIENT HAS IV ACCESS ON LEFT HAND #22G RUNNING D5NS AT 40 ML/HR. SAFETY MEASURES ARE IN PLACE, BED IS LOCKED AND PLACED IN THE LOW POSITION, SIDE RAILS UP X 2. CALL LIGHT IS WITHIN REACH. WILL CONTINUE TO MONITOR AND PROVIDE CARE.
[2020-02-10 08:00] VITALS: BP 141/76
[2020-02-10] MEDS: EZETIMIBE 10 MG TABLET PO SCH (08:16)
[2020-02-10] MEDS: ASPIRIN EC 81 MG TABLET.DR PO SCH (08:16)
[2020-02-10] MEDS: ICOSAPENT ETHYL 2 GM PO SCH ×2 (08:16→16:10)
[2020-02-10] MEDS: PANTOPRAZOLE 40 MG TABLET.DR PO SCH (08:16)
[2020-02-10] MEDS: POTASSIUM CHLORIDE 20 MEQ TAB.PRT.SR PO SCH (08:16)
[2020-02-10] MEDS: ZINC SULFATE 220 MG CAPSULE PO SCH (08:16)
[2020-02-10] MEDS: ONDANSETRON HCL/PF 4 MG/2 ML VIAL IVP PRN (08:17)
[2020-02-10] MEDS: CARVEDILOL 3.125 MG TABLET PO SCH ×2 (08:17→16:02)
[2020-02-10] MEDS: ENSURE ENLIVE 237 ML LIQUID (VANILLA) PO SCH ×3 (08:18→16:11)
[2020-02-10] MEDS: Brinzolamide/Brimonid Tart (Simbrinza 1%-0.2% Eye Drops RIGHTEYE SCH ×2 (08:18→16:11)
[2020-02-10] MEDS: DIFLUPREDNATE RIGHTEYE SCH (08:19)
[2020-02-10 12:00] VITALS: BP 112/59
[2020-02-10 16:00] VITALS: BP 110/73
--- NOTE | 2020-02-10 19:00 | NUR ---
RN OPENING NOTE RECEIVED PATIENT IN BED RESTING ALERT ORIENTED X4 VERBALLY RESPONSIVE ABLE TO MAKE NEEDS KNOWN, ON HIGH FLOW OXYGEN 50L O2:96% IV SITE IS ON LEFT HAND INTACT PATENT, ON IV HYDRATION D5NS 40CC/HR CONTINENT TO BOWEL/BLADDER,CALL LIGHT WITHIN REACH,SAFETY MEASURE IMPLEMENT CONTINUE TO MONITOR.
--- NOTE | 2020-02-10 19:43 | NUR ---
RN CLOSING NOTES PATIENT IN BED, RESTING. PATIENT CURRENTLY ON HIGH FLOW OXYGEN AT 50%, TOLERATING SETTING WELL. NO SIGNS OF SOB OR RESPIRATORY DISTRESS NOTED. BREATHING IS EVEN AND UNLABORED. PATIENT IN NO SIGNS OF DISTRESS. PATIENT HAS IV ACCESS ON LEFT HAND #22G RUNNING D5NS AT 40 ML/HR. SAFETY MEASURES ARE IN PLACE, BED IS LOCKED AND PLACED IN THE LOW POSITION, SIDE RAILS UP X 2. CALL LIGHT IS WITHIN REACH. WILL ENDORSE TO SWITCHING CLERK FOR NABIL.
[2020-02-10 20:00] VITALS: BP 113/54
[2020-02-10] MEDS: ENOXAPARIN SODIUM 40 MG/0.4 ML DISP.SYRIN SQ SCH (21:49)
[2020-02-10] MEDS: BROMFENAC SODIUM RIGHTEYE SCH (21:52)
[2020-02-11] VITALS: BP 144/64
[2020-02-11 04:00] VITALS: BP 126/55
--- NOTE | 2020-02-11 07:05 | NUR ---
RN CLOSING NOTE PATIENT REMAINS ON ALERT ORIENTED X4 VERBALLY RESPONSIVE NO SOB NOT ACUTE DISTRESS NOTED,ON 50L OXYGEN HIGH FLOW OXYGEN O2:97% ALL DUE MEDS GIVEN MD ORDERED KEPT CLEAN AND DRY ALL THE TIME,KEPT COMFORTABLE ENDORSE NEXT COMING SHIFT FOR CONTINUATION OF CARE.
[2020-02-11 07:11] LABS: BASOPHILS # (AUTO) 0.1 /CMM (0.0-0.2); EOSINOPHILS % (AUTO) 6.5 % (0.0-6.0); HEMATOCRIT 33 % (33-45); HEMOGLOBIN 11.1 g/dL (11.5-14.8); LYMPHOCYTES # (AUTO) 1.5 /CMM (0.8-4.8); LYMPHOCYTES % (AUTO) 17.3 % (20.0-44.0); MEAN CORPUSCULAR HGB CONC 34 g/dl (31.0-36.0); MEAN CORPUSCULAR VOLUME 87 fL (82-100); MONOCYTES # (AUTO) 0.7 /CMM (0.1-1.30); MONOCYTES % (AUTO) 8.5 % (2.0-12.0); NEUTROPHILS # (AUTO) 5.7 /CMM (1.8-8.9); NEUTROPHILS % (AUTO) 66.7 % (43.0-81.0); PLATELET COUNT (AUTO) 162 /CMM (150-450); RED BLOOD CELL COUNT(AUTO) 3.81 MIL/uL (4.0-5.2); WHITE BLOOD COUNT (AUTO) 8.5 K/uL (4.3-11.0)
[2020-02-11 07:25] LABS: CALCIUM, SERUM 8.3 mg/dL (8.5-10.1); CARBON DIOXIDE 25 mmol/L (21-32); CHLORIDE 108 mmol/L (98-107); CREATININE 0.5 mg/dL (0.6-1.3); GLUCOSE 102 mg/dL (74-106); MAGNESIUM 1.8 mg/dL (1.8-2.4); PHOSPHORUS 4.1 mg/dL (2.5-4.9); SODIUM SERUM 140 mmol/L (136-145); UREA NITROGEN, BLOOD 11 mg/dL (7-18)
[2020-02-11 08:00] VITALS: BP 148/71
[2020-02-11] MEDS: PANTOPRAZOLE 40 MG TABLET.DR PO SCH (08:40)
[2020-02-11] MEDS: ZINC SULFATE 220 MG CAPSULE PO SCH (08:41)
[2020-02-11] MEDS: ICOSAPENT ETHYL 2 GM PO SCH ×2 (08:41→16:17)
[2020-02-11] MEDS: EZETIMIBE 10 MG TABLET PO SCH (08:41)
[2020-02-11] MEDS: ASPIRIN EC 81 MG TABLET.DR PO SCH (08:41)
[2020-02-11] MEDS: Brinzolamide/Brimonid Tart (Simbrinza 1%-0.2% Eye Drops RIGHTEYE SCH ×2 (08:42→16:17)
[2020-02-11] MEDS: ENSURE ENLIVE 237 ML LIQUID (VANILLA) PO SCH ×3 (08:42→16:17)
[2020-02-11] MEDS: POTASSIUM CHLORIDE 20 MEQ TAB.PRT.SR PO SCH (08:42)
[2020-02-11] MEDS: DIFLUPREDNATE RIGHTEYE SCH (08:42)
[2020-02-11] MEDS: CARVEDILOL 3.125 MG TABLET PO SCH ×2 (08:42→16:16)
[2020-02-11] MEDS: ONDANSETRON HCL/PF 4 MG/2 ML VIAL IVP PRN (08:52)
[2020-02-11] MEDS: IV D5/ 0.9% NACL 1,000 ML IV PRN (11:00)
[2020-02-11 12:00] VITALS: BP 131/62
[2020-02-11 16:00] VITALS: BP 147/60
--- NOTE | 2020-02-11 18:28 | NUR ---
RN CLOSING NOTES PATIENT SLEEPING IN BED. PATIENT CURRENTLY ON HIGH FLOW OXYGEN AT 40L, TOLERATING SETTING WELL. NO SIGNS OF SOB OR RESPIRATORY DISTRESS NOTED. BREATHING IS EVEN AND UNLABORED. PATIENT IN NO SIGNS OF DISTRESS. PATIENT HAS IV ACCESS ON LEFT HAND #22G RUNNING D5NS AT 40 ML/HR. SAFETY MEASURES ARE IN PLACE, BED IS LOCKED AND PLACED IN THE LOW POSITION, SIDE RAILS UP X 2. CALL LIGHT IS WITHIN REACH. WILL ENDORSE TO AQUATIC LABORER NURSE FOR NABIL.
--- NOTE | 2020-02-11 19:40 | NUR ---
TELE/RN OPENING NOTES RECEIVED PATIENT RESTING IN BED. NO SOB NOTED. NO S/S OF ACUTE DISTRESS. NO C/O PAIN AT THIS TIME. ON HIGH FLOW OXYGEN AT 40L VIA NC AND 85% FIO2. TOLERATING SETTING WELL. NO RESPIRATORY DISTRESS NOTED. BREATHING IS EVEN AND UNLABORED. IV ACCESS NOTED ON LEFT HAND #22G RUNNING D5 NS AT 40 ML/HR. SAFETY MEASURES ARE IN PLACE, BED IS LOCKED AND PLACED IN THE LOW POSITION, SIDE RAILS UP X 2. CALL LIGHT IS WITHIN REACH. WILL MONITOR THROUGH OUT THE SHIFT.
[2020-02-11 20:00] VITALS: BP 112/57
[2020-02-11] MEDS: BROMFENAC SODIUM RIGHTEYE SCH (21:49)
[2020-02-11] MEDS: ENOXAPARIN SODIUM 40 MG/0.4 ML DISP.SYRIN SQ SCH (21:51)
[2020-02-12] VITALS: BP 125/53
[2020-02-12 04:00] VITALS: BP 136/69
--- NOTE | 2020-02-12 04:30 | NUR ---
TELE/RN NOTES: RT WENCESLAO AT BEDSIDE. TITRATED FIO2 TO 60% HIGH FLOW RATE REMAINS 40L VIA NC. TOLERATING WELL. SATURATING AT 95%. PT STABLE AT THIS TIME.
[2020-02-12 06:07] LABS: BASOPHILS # (AUTO) 0.1 /CMM (0.0-0.2); EOSINOPHILS % (AUTO) 8.4 % (0.0-6.0); HEMATOCRIT 32 % (33-45); HEMOGLOBIN 10.4 g/dL (11.5-14.8); LYMPHOCYTES # (AUTO) 1.6 /CMM (0.8-4.8); MEAN CORPUSCULAR HGB CONC 33 g/dl (31.0-36.0); MEAN CORPUSCULAR VOLUME 87 fL (82-100); MONOCYTES # (AUTO) 0.7 /CMM (0.1-1.30); MONOCYTES % (AUTO) 10.1 % (2.0-12.0); NEUTROPHILS # (AUTO) 3.7 /CMM (1.8-8.9); NEUTROPHILS % (AUTO) 55.5 % (43.0-81.0); PLATELET COUNT (AUTO) 154 /CMM (150-450); RED BLOOD CELL COUNT(AUTO) 3.63 MIL/uL (4.0-5.2); WHITE BLOOD COUNT (AUTO) 6.6 K/uL (4.3-11.0)
[2020-02-12 06:08] LABS: CARBON DIOXIDE 25 mmol/L (21-32); CHLORIDE 109 mmol/L (98-107); CREATININE 0.5 mg/dL (0.6-1.3); GLUCOSE 235 mg/dL (74-106); MAGNESIUM 1.7 mg/dL (1.8-2.4); PHOSPHORUS 3.8 mg/dL (2.5-4.9); POTASSIUM 3.8 mmol/L (3.5-5.1); SODIUM SERUM 142 mmol/L (136-145); UREA NITROGEN, BLOOD 8 mg/dL (7-18)
--- NOTE | 2020-02-12 06:50 | NUR ---
TELE/RN CLOSING NOTES PATIENT REMAINS RESTING ON THE BED. NO SOB NOTED. NO S/S OF ACUTE DISTRESS. NO C/O PAIN AT THIS TIME. ON HIGH FLOW OXYGEN AT 40L VIA NC AND 60% FIO2, SATURATING AT 95%. TOLERATING SETTING WELL. NO RESPIRATORY DISTRESS NOTED. BREATHING IS EVEN AND UNLABORED. IV ACCESS NOTED ON LEFT HAND #22G RUNNING D5 NS AT 40 ML/HR. SON CALLED FOR UPDATES. UPDATED ON PT'S PROGRESS. SAFETY MEASURES ARE IN PLACE, BED IS LOCKED AND PLACED IN THE LOW POSITION, SIDE RAILS UP X 2. CALL LIGHT IS WITHIN REACH. WILL ENDORSE TO DAY SHIFT FOR NABIL.
--- NOTE | 2020-02-12 07:00 | NUR ---
PT AWAKE. A/OX3. HIGH FLOW NC ON AT 60% ORDERED. SR ON TELE. RESPIRATIONS EVEN UNLABORED. SKIN WARM FLUSHED. IV L HAND FLUSHED AND PATENT. DRESSING INTACT. D5NS RUNNING ORDERED. WILL MONITOR RESP STATUS AND VS AND LABS THROUGHOUT THE DAY. WILL IMPLEMENT ORDERED AND REPORT TO MD NEEDED. RAILS IP X2, BED LOW, LOCKED, CALL LIGHT IN REACH, BED ALARM ON.
[2020-02-12 08:00] VITALS: BP 162/74
[2020-02-12] MEDS: ERGOCALCIFEROL (VITAMIN D 2) 50,000 UNIT CAPSULE PO SCH (08:32)
[2020-02-12] MEDS: ICOSAPENT ETHYL 2 GM PO SCH ×2 (08:33→17:28)
[2020-02-12] MEDS: ZINC SULFATE 220 MG CAPSULE PO SCH (08:33)
[2020-02-12] MEDS: EZETIMIBE 10 MG TABLET PO SCH (08:33)
[2020-02-12] MEDS: ASPIRIN EC 81 MG TABLET.DR PO SCH (08:33)
[2020-02-12] MEDS: PANTOPRAZOLE 40 MG TABLET.DR PO SCH (08:33)
[2020-02-12] MEDS: POTASSIUM CHLORIDE 20 MEQ TAB.PRT.SR PO SCH (08:33)
[2020-02-12] MEDS: CARVEDILOL 3.125 MG TABLET PO SCH ×2 (08:34→17:31)
[2020-02-12] MEDS: ENSURE ENLIVE 237 ML LIQUID (VANILLA) PO SCH ×3 (08:34→17:00)
[2020-02-12] MEDS: Brinzolamide/Brimonid Tart (Simbrinza 1%-0.2% Eye Drops RIGHTEYE SCH ×2 (08:35→17:32)
[2020-02-12] MEDS: DIFLUPREDNATE RIGHTEYE SCH (10:41)
[2020-02-12] MEDS: Magnesium 1GM/D5W 100ML PREMIX 100 ML IV SCH ×2 (10:42→11:51)
[2020-02-12 12:00] VITALS: BP 141/76
[2020-02-12] MEDS: ONDANSETRON HCL/PF 4 MG/2 ML VIAL IVP PRN (12:27)
[2020-02-12] MEDS: IV D5/ 0.9% NACL 1,000 ML IV PRN (12:32)
--- NOTE | 2020-02-12 13:07 | NUR ---
PT REPORT NO APPETITE TO DRINK THE ORDERED ENSURE. WILL CONTINUE TO OFFER ORDERED AND MONITOR APPETITE AND NUTRITIONAL INTAKE.
[2020-02-12 16:00] VITALS: BP 143/61
--- NOTE | 2020-02-12 18:39 | NUR ---
Patient was AOx4. Patient has difficulty understanding some Vietnamese. Complied with all medications except eyedrops. Skin warm to touch and in tact, continue to monitor due to bed bound status. Bowel sounds are normoactive. SpO2 within normal range @60% high flow. Patient's Peripheral IV was infiltrated around 1830 and awaiting Midline placement. Patient experienced some nausea that was relieved with Zofran. Cardiac is sinus rhythm.
--- NOTE | 2020-02-12 19:21 | NUR ---
CUSTODIAN NOT3ES PATIENT IN BED, AWAKE, ALERT AND ORIENTED X 4. BREATHING EVEN AND UNLABORED ON HIGH FLOW 40LPM. SHOWS NO SIGNS OF ACUTE RESPIRATORY DISTRESS. NO ACUTE PAIN. TELE MONITOR SR. IV ON JOAO MIDLINE CLEAN DRY AND INTACT. SHOWS NO SIGNS OF INFILTRATION, NO REDNESS. SAFETY PRECAUTIONS IN PLACE. BED IN LOWEST POSITION, LOCKED, AND CALL LIGHT KEPT WITHIN REACH. WILL CONTINUE TO MONITOR.
[2020-02-12 20:00] VITALS: BP 143/65
[2020-02-12] MEDS: BROMFENAC SODIUM RIGHTEYE SCH (21:08)
[2020-02-12] MEDS: ENOXAPARIN SODIUM 40 MG/0.4 ML DISP.SYRIN SQ SCH (21:08)
[2020-02-13] VITALS: BP 145/73
[2020-02-13 04:00] VITALS: BP 137/74
[2020-02-13 06:18] LABS: BASOPHILS % (AUTO) 0.6 % (0.0-2.0); EOSINOPHILS % (AUTO) 12.6 % (0.0-6.0); HEMATOCRIT 34 % (33-45); HEMOGLOBIN 11.4 g/dL (11.5-14.8); LYMPHOCYTES # (AUTO) 1.5 /CMM (0.8-4.8); LYMPHOCYTES % (AUTO) 20.6 % (20.0-44.0); MEAN CORPUSCULAR HGB CONC 34 g/dl (31.0-36.0); MEAN CORPUSCULAR VOLUME 87 fL (82-100); MONOCYTES # (AUTO) 0.6 /CMM (0.1-1.30); MONOCYTES % (AUTO) 8.6 % (2.0-12.0); NEUTROPHILS % (AUTO) 57.6 % (43.0-81.0); PLATELET COUNT (AUTO) 175 /CMM (150-450); RED BLOOD CELL COUNT(AUTO) 3.94 MIL/uL (4.0-5.2)
[2020-02-13 06:24] LABS: CALCIUM, SERUM 8.3 mg/dL (8.5-10.1); CARBON DIOXIDE 27 mmol/L (21-32); CHLORIDE 106 mmol/L (98-107); CREATININE 0.5 mg/dL (0.6-1.3); GLUCOSE 112 mg/dL (74-106); MAGNESIUM 2.3 mg/dL (1.8-2.4); PHOSPHORUS 4.1 mg/dL (2.5-4.9); SODIUM SERUM 140 mmol/L (136-145); UREA NITROGEN, BLOOD 7 mg/dL (7-18)
--- NOTE | 2020-02-13 06:47 | NUR ---
SOLE LEVELER NOTES PATIENT IN BED, ASLEEP, ALERT AND ORIENTED X 4. BREATHING EVEN AND UNLABORED ON HIGH FLOW 40LPM. SHOWS NO SIGNS OF ACUTE RESPIRATORY DISTRESS. NO ACUTE PAIN. TELE MONITOR SR. IV ON JOAO MIDLINE CLEAN DRY AND INTACT. SHOWS NO SIGNS OF INFILTRATION, NO REDNESS. ALL DUE MEDICATIONS.ISOLATION PRECAUTIONS IN PLACE SAFETY PRECAUTIONS IN PLACE. BED IN LOWEST POSITION, LOCKED, AND CALL LIGHT KEPT WITHIN REACH. WILL ENDORSE TO ONCOMING NURSE.
[2020-02-13 08:00] VITALS: BP 142/58
--- NOTE | 2020-02-13 08:00 | NUR ---
PUBLIC HEALTH ENGINEER NOTES PATIENT IN BED, ASLEEP, ALERT AND ORIENTED X 4. BREATHING EVEN AND UNLABORED ON HIGH FLOW 40LPM. O2 SAT 97%. SHOWS NO SIGNS OF ACUTE RESPIRATORY DISTRESS. NO ACUTE PAIN. TELE MONITOR SR. PT C/O NAUSEOUS AND POOR APPETITE. PT IS ON ENSURE.ENCOURAGED TO INCREASE FLUID INTAKE. PT HAS VERY SUPPORTIVE FAMILY.IV ON JOAO MIDLINE CLEAN DRY AND INTACT. SHOWS NO SIGNS OF INFILTRATION, ISOLATION PRECAUTIONS IN PLACE SAFETY PRECAUTIONS IN PLACE. BED IN LOWEST POSITION, LOCKED, AND CALL LIGHT KEPT WITHIN REACH
[2020-02-13] MEDS: ZINC SULFATE 220 MG CAPSULE PO SCH (08:53)
[2020-02-13] MEDS: ENSURE ENLIVE 237 ML LIQUID (VANILLA) PO SCH ×3 (08:54→17:45)
[2020-02-13] MEDS: ASPIRIN EC 81 MG TABLET.DR PO SCH (08:54)
[2020-02-13] MEDS: PANTOPRAZOLE 40 MG TABLET.DR PO SCH (08:54)
[2020-02-13] MEDS: EZETIMIBE 10 MG TABLET PO SCH (08:54)
[2020-02-13] MEDS: POTASSIUM CHLORIDE 20 MEQ TAB.PRT.SR PO SCH (08:54)
[2020-02-13] MEDS: CARVEDILOL 3.125 MG TABLET PO SCH ×2 (08:54→16:56)
[2020-02-13] MEDS: ICOSAPENT ETHYL 2 GM PO SCH ×2 (08:56→16:56)
[2020-02-13] MEDS: ONDANSETRON HCL/PF 4 MG/2 ML VIAL IVP PRN (09:22)
[2020-02-13] MEDS: Brinzolamide/Brimonid Tart (Simbrinza 1%-0.2% Eye Drops RIGHTEYE SCH ×2 (09:27→16:56)
[2020-02-13] MEDS: DIFLUPREDNATE RIGHTEYE SCH (09:28)
[2020-02-13 12:00] VITALS: BP 152/77
--- NOTE | 2020-02-13 15:00 | NUR ---
RN NOTES RECEIVED REPORT FROM YOUNG VÁZQUEZ FOR NABIL
[2020-02-13 16:00] VITALS: BP 139/74
--- NOTE | 2020-02-13 19:30 | NUR ---
RN CLOSING NOTES PT RESTING IN BED. PT ON HIGH FLOW OXYGEN AT 40L, TOLERATING SETTING WELL. NO SIGNS OF SOB OR RESPIRATORY DISTRESS NOTED. BREATHING IS EVEN AND UNLABORED. PATIENT IN NO SIGNS OF DISTRESS. PATIENT HAS IV ACCESS ON LEFT HAND #22G RUNNING D5NS AT 40 ML/HR. SAFETY MEASURES ARE IN PLACE, BED IS LOCKED AND PLACED IN THE LOW POSITION, SIDE RAILS UP X 2. CALL LIGHT IS WITHIN REACH. WILL ENDORSE TO NIGHT NURSE FOR NABIL.
--- NOTE | 2020-02-13 19:35 | NUR ---
BUSINESS MANAGEMENT SPECIALIST OPENING NOTES PATIENT AWAKE IN BED. A/OX4. ON 40L/MIN HIGHFLOW OXYGEN; CONTINUOUS PULSE OX READING 95; NO S/S OF ACUTE RESPIRATORY DISTRESS. NO C/O PAIN. TELE MONITOR READING SINUS RHYTHM. MIDLINE PRESENT ON RIGHT UPPER ARM, INTACT & PATENT, HEP LOCKED. CONTACT/DROPLET PRECAUTIONS IN PLACE FOR COVID. SAFETY MEASURES IN PLACE AND PATIENT'S NEEDS MET. BED LOCKED, HOB ELEVATED, SIDE RAILS X2, CALL LIGHT WITHIN REACH. WILL CONTINUE TO MONITOR.
[2020-02-13 20:00] VITALS: BP 139/64
[2020-02-13] MEDS: BROMFENAC SODIUM RIGHTEYE SCH (22:38)
[2020-02-13] MEDS: ENOXAPARIN SODIUM 40 MG/0.4 ML DISP.SYRIN SQ SCH (22:38)
[2020-02-14] VITALS: BP 117/44
[2020-02-14 04:00] VITALS: BP 119/54
[2020-02-14 06:06] LABS: BASOPHILS % (AUTO) 0.7 % (0.0-2.0); EOSINOPHILS % (AUTO) 10.5 % (0.0-6.0); HEMATOCRIT 36 % (33-45); HEMOGLOBIN 11.8 g/dL (11.5-14.8); LYMPHOCYTES % (AUTO) 24.7 % (20.0-44.0); MEAN CORPUSCULAR HGB CONC 33 g/dl (31.0-36.0); MEAN CORPUSCULAR VOLUME 87 fL (82-100); MONOCYTES % (AUTO) 9.8 % (2.0-12.0); NEUTROPHILS % (AUTO) 54.3 % (43.0-81.0); PLATELET COUNT (AUTO) 174 /CMM (150-450); WHITE BLOOD COUNT (AUTO) 7.4 K/uL (4.3-11.0)
[2020-02-14 06:07] LABS: BASOPHILS # (AUTO) 0.1 /CMM (0.0-0.2); LYMPHOCYTES # (AUTO) 1.8 /CMM (0.8-4.8); MONOCYTES # (AUTO) 0.7 /CMM (0.1-1.30)
[2020-02-14 06:16] LABS: CALCIUM, SERUM 8.6 mg/dL (8.5-10.1); CARBON DIOXIDE 25 mmol/L (21-32); CHLORIDE 104 mmol/L (98-107); CREATININE 0.5 mg/dL (0.6-1.3); GLUCOSE 110 mg/dL (74-106); MAGNESIUM 2.1 mg/dL (1.8-2.4); PHOSPHORUS 4.5 mg/dL (2.5-4.9); POTASSIUM 4.4 mmol/L (3.5-5.1); SODIUM SERUM 139 mmol/L (136-145); UREA NITROGEN, BLOOD 15 mg/dL (7-18)
[2020-02-14] MEDS: PANTOPRAZOLE 40 MG TABLET.DR PO SCH (06:32)
--- NOTE | 2020-02-14 06:57 | NUR ---
AUTOMATIC PROFILE SHAPER OPERATOR CLOSING NOTES PATIENT SLEEPING. ON 40L/MIN HIGHFLOW OXYGEN; CONTINUOUS PULSE OX READING 97; NO S/S OF ACUTE RESPIRATORY DISTRESS. NO S/S OF PAIN NOTED. TELE MONITOR READING SINUS RHYTHM. MIDLINE PRESENT ON RIGHT UPPER ARM, INTACT & PATENT, HEP LOCKED. SAFETY MEASURES IN PLACE AND PATIENT'S NEEDS MET. BED LOCKED, HOB ELEVATED, SIDE RAILS X2, CALL LIGHT WITHIN REACH. WILL ENDORSE TO DAY SHIFT RN PLAN OF CARE.
--- NOTE | 2020-02-14 07:34 | NUR ---
MOLDER OPENING NOTES RECEIVED PATIENT RESTING IN BED AWAKE A/OX4. ON 40L/MIN HIGHFLOW OXYGEN; CONTINUOUS PULSE OX READING 95; NO S/S OF ACUTE RESPIRATORY DISTRESS. NO C/O PAIN OR DISCOMFORT AT THIS TIME. TELE MONITOR READING SINUS RHYTHM. RIGHT UPPER ARM MIDLINE IN PLACE, INTACT & PATENT, KEPT HEP LOCKED. CONTACT/DROPLET PRECAUTIONS IN PLACE FOR COVID. SAFETY MEASURES IN PLACE. BED IN LOW POSITION AND LOCKED WITH HOB ELEVATED, SIDE RAILS UPX2, AND CALL LIGHT WITHIN REACH. WILL CONTINUE TO MONITOR.
[2020-02-14 08:00] VITALS: BP 105/48
[2020-02-14] MEDS: Brinzolamide/Brimonid Tart (Simbrinza 1%-0.2% Eye Drops RIGHTEYE SCH ×2 (09:00→16:46)
[2020-02-14] MEDS: DIFLUPREDNATE RIGHTEYE SCH (09:00)
[2020-02-14] MEDS: ENSURE ENLIVE 237 ML LIQUID (VANILLA) PO SCH ×3 (09:00→16:45)
[2020-02-14] MEDS: ZINC SULFATE 220 MG CAPSULE PO SCH (10:30)
[2020-02-14] MEDS: EZETIMIBE 10 MG TABLET PO SCH (10:30)
[2020-02-14] MEDS: ICOSAPENT ETHYL 2 GM PO SCH ×2 (10:30→16:47)
[2020-02-14] MEDS: ASPIRIN EC 81 MG TABLET.DR PO SCH (10:30)
[2020-02-14] MEDS: POTASSIUM CHLORIDE 20 MEQ TAB.PRT.SR PO SCH (10:30)
[2020-02-14] MEDS: CARVEDILOL 3.125 MG TABLET PO SCH ×2 (10:31→16:47)
[2020-02-14 12:00] VITALS: BP 139/73
[2020-02-14 16:00] VITALS: BP 121/60
--- NOTE | 2020-02-14 18:06 | NUR ---
PROPERTY TECHNICIAN OPENING NOTES PATIENT RESTING IN BED AWAKE A/OX4. CONTINUES ON 40L/MIN HIGHFLOW OXYGEN; CONTINUOUS PULSE OX READING 97-98%; NO S/S OF ACUTE RESPIRATORY DISTRESS. NO C/O PAIN OR DISCOMFORT AT THIS TIME. TELE MONITOR READING SINUS RHYTHM. RIGHT UPPER ARM MIDLINE IN PLACE, INTACT & PATENT, KEPT HEP LOCKED. CONTACT/DROPLET PRECAUTIONS IN PLACE FOR COVID. SAFETY MEASURES IN PLACE. BED IN LOW POSITION AND LOCKED WITH HOB ELEVATED, SIDE RAILS UPX2, AND CALL LIGHT WITHIN REACH. PENDING PCR RESULTS FOR POSSIBLE D/C TO [facility]. WILL ENDORSE TO ONCOMING SHIFT.
[2020-02-14 20:00] VITALS: BP 117/55
--- NOTE | 2020-02-14 20:00 | NUR ---
SHANK CUTTER OPENING NOTES PATIENT RESTING IN BED AWAKE A/OX4. CONTINUES ON 40L/MIN HIGHFLOW OXYGEN; CONTINUOUS PULSE OX READING 97%; NO S/S OF ACUTE RESPIRATORY DISTRESS. NO C/O PAIN OR DISCOMFORT AT THIS TIME. TELE MONITOR READING SINUS RHYTHM. RIGHT UPPER ARM MIDLINE IN PLACE, INTACT & PATENT, flushed. CONTACT/DROPLET PRECAUTIONS IN PLACE FOR COVID. SAFETY MEASURES IN PLACE. BED IN LOW POSITION AND LOCKED WITH HOB ELEVATED, SIDE RAILS UPX2, AND CALL LIGHT WITHIN REACH. WILL CONT TO MONITOR.
--- NOTE | 2020-02-14 22:00 | NUR ---
telephone station repairer notes Received a call from lab covid 19 pcr result done on 02/13/20 is positive covid
[2020-02-14] MEDS: ENOXAPARIN SODIUM 40 MG/0.4 ML DISP.SYRIN SQ SCH (22:10)
[2020-02-14] MEDS: BROMFENAC SODIUM RIGHTEYE SCH (22:17)
[2020-02-15] VITALS: BP 118/52
--- NOTE | 2020-02-15 02:45 | NUR ---
o2 titration;patient now on 30 liters high flow at 50 percent fio2 saturating at 94 percent rr of 20 . titration performed by polly basilio will cont to monitor.
[2020-02-15 04:00] VITALS: BP 137/57
[2020-02-15 07:22] LABS: BASOPHILS % (AUTO) 0.7 % (0.0-2.0); EOSINOPHILS % (AUTO) 10.4 % (0.0-6.0); HEMATOCRIT 35 % (33-45); HEMOGLOBIN 11.4 g/dL (11.5-14.8); LYMPHOCYTES # (AUTO) 1.9 /CMM (0.8-4.8); LYMPHOCYTES % (AUTO) 26.5 % (20.0-44.0); MEAN CORPUSCULAR HGB CONC 33 g/dl (31.0-36.0); MEAN CORPUSCULAR VOLUME 87 fL (82-100); MONOCYTES # (AUTO) 0.8 /CMM (0.1-1.30); MONOCYTES % (AUTO) 10.5 % (2.0-12.0); NEUTROPHILS # (AUTO) 3.7 /CMM (1.8-8.9); NEUTROPHILS % (AUTO) 51.9 % (43.0-81.0); PLATELET COUNT (AUTO) 179 /CMM (150-450); RED BLOOD CELL COUNT(AUTO) 3.98 MIL/uL (4.0-5.2); WHITE BLOOD COUNT (AUTO) 7.2 K/uL (4.3-11.0)
--- NOTE | 2020-02-15 07:30 | NUR ---
TELE/RN OPENING NOTE Received patient resting in bed, A&O x 4. No complaints of pain/discomfort at this time. Breathing even and non-labored on High Flow, 30 L oxygen, FiO2 50%, saturating at 94%. No respiratory or cardiac distress noted. On tele monitor, reading SR with PVCs 96. JOAO midline access noted, patent and intact, and flushing well. Bed locked to its lowest position, side rails x 2 up, call light in hand. Will continue with current medical management.
[2020-02-15 07:52] LABS: CALCIUM, SERUM 8.6 mg/dL (8.5-10.1); CREATININE 0.6 mg/dL (0.6-1.3); PHOSPHORUS 4.6 mg/dL (2.5-4.9); POTASSIUM 4.2 mmol/L (3.5-5.1)
[2020-02-15 08:00] VITALS: BP 140/52
[2020-02-15] MEDS: PANTOPRAZOLE 40 MG TABLET.DR PO SCH (08:34)
[2020-02-15] MEDS: POTASSIUM CHLORIDE 20 MEQ TAB.PRT.SR PO SCH (08:39)
[2020-02-15] MEDS: ICOSAPENT ETHYL 2 GM PO SCH ×2 (08:39→17:27)
[2020-02-15] MEDS: ASPIRIN EC 81 MG TABLET.DR PO SCH (08:39)
[2020-02-15] MEDS: ZINC SULFATE 220 MG CAPSULE PO SCH (08:39)
[2020-02-15] MEDS: EZETIMIBE 10 MG TABLET PO SCH (08:39)
[2020-02-15] MEDS: CARVEDILOL 3.125 MG TABLET PO SCH ×2 (09:17→17:27)
[2020-02-15] MEDS: ENSURE ENLIVE 237 ML LIQUID (VANILLA) PO SCH ×3 (09:17→17:27)
--- NOTE | 2020-02-15 09:33 | NUR ---
TELE/RN NOTE Patient complains of constipation, administered milk of magnesia 30 mL, also encouraged patient to drink plenty of fluids to relieve constipation.
[2020-02-15] MEDS: Brinzolamide/Brimonid Tart (Simbrinza 1%-0.2% Eye Drops RIGHTEYE SCH ×2 (09:40→17:42)
[2020-02-15] MEDS: DIFLUPREDNATE RIGHTEYE SCH (09:41)
[2020-02-15 12:00] VITALS: BP 139/58
--- NOTE | 2020-02-15 13:13 | NUR ---
TELE/RN NOTE Patient on 10 L High flow oxygen, tolerating well, saturating at 97%. No respiratory distress noted. Addendum: 02/15/20 at 1736 by LAURA STEVNES RN CORRECTION: ON 30 L HIGH FLOW OXYGEN
[2020-02-15 16:00] VITALS: BP 129/51
--- NOTE | 2020-02-15 18:51 | NUR ---
TELE/RN CLOSING NOTE Patient resting in bed, A&O x 4. All needs met and attended to. Denied any pain/discomfort throughout shift. Breathing even and non-labored on High Flow, 30 L oxygen, FiO2 50%, saturating at 97%. No respiratory or cardiac distress noted. On tele monitor, reading SR with PVCs 89. JOAO midline access noted, patent and intact, and flushing well. Fall precautions maintained. Will endorse to administrative and program specialist nurse.
[2020-02-15 20:00] VITALS: BP 120/52
--- NOTE | 2020-02-15 20:00 | NUR ---
TELE/RN OPENING NOTE PT IN BED A/O X4 DENIES PAIN DISCOMFORT BREATHING EVEN AND UNLABORED ON HFNC 30 LITERS AT FIO2 OF 50%SR WITH PVC ON TELE MONITOR. JOAO MIDLINE FLUSHED PATENT DRESSING INTACT. FALL PRECAUTIONS IN PLACE BED ALARM IS ACTIVE. CALL LIGHT IN REACH VERBALIZED UNDERSTANDING TO CALL FOR ASSISTANCE IF NEEDED.
--- NOTE | 2020-02-15 21:58 | NUR ---
RT NOTES TITRATED FIO2 TO 30% PT SPO2 BETWEEN 92-94% RN JIMI PRESENT WHEN TITRATION PREFORMED. WILL CONTINUE TO MONITOR T/O SHIFT.
[2020-02-15] MEDS: ENOXAPARIN SODIUM 40 MG/0.4 ML DISP.SYRIN SQ SCH (22:00)
[2020-02-15] MEDS: BROMFENAC SODIUM RIGHTEYE SCH (22:01)
--- NOTE | 2020-02-15 22:02 | NUR ---
titrated oxygen with terrie harrison pt on 30 l hfnc at now fio2 of 30%
[2020-02-16] VITALS: BP 113/61
--- NOTE | 2020-02-16 01:48 | NUR ---
RT NOTE INCREASED FIO2 TO 40% D/T PT COMPLAINED OF NOT GETTING ENOUGH AIR. CURRENT SATURATION IS 94-96%. GURPREET KRAUSE NOTIFIED OF CHANGES. WILL CONTINUE TO MONITOR T/O SHIFT.
--- NOTE | 2020-02-16 01:55 | NUR ---
changes noted by rt terrie. pt spo2 95 %. 30 l hfnc at 40%fio2 pt reports she feels better.
[2020-02-16 04:00] VITALS: BP 111/44
--- NOTE | 2020-02-16 06:58 | NUR ---
TELE/RN CLOSING NOTE PT IN BED A/O X4 DENIES PAIN DISCOMFORT BREATHING EVEN AND UNLABORED ON PT TITRATED LAST NIGHT OXYGEN. HFNC NOW AT 30 LITERS AT FIO2 OF 40%. DENIES SOB. STATES THAT SHE FEELS MILD SOB BUT THAT ITS TOLERATBLE. PT HAD DIFFICULTY SLEEPING LAST NIGHT. SR WITH PVC ON TELE MONITOR. JOAO MIDLINE FLUSHED PATENT DRESSING INTACT. FALL PRECAUTIONS IN PLACE BED ALARM IS ACTIVE. CALL LIGHT IN REACH VERBALIZED UNDERSTANDING TO CALL FOR ASSISTANCE IF NEEDED. WILL ENDORSE TO ONCOMING SHIFT.
[2020-02-16 07:14] LABS: BASOPHILS # (AUTO) 0.1 /CMM (0.0-0.2); BASOPHILS % (AUTO) 0.9 % (0.0-2.0); CALCIUM, SERUM 8.5 mg/dL (8.5-10.1); CREATININE 0.6 mg/dL (0.6-1.3); EOSINOPHILS % (AUTO) 11.6 % (0.0-6.0); HEMATOCRIT 35 % (33-45); HEMOGLOBIN 11.4 g/dL (11.5-14.8); LYMPHOCYTES # (AUTO) 1.9 /CMM (0.8-4.8); LYMPHOCYTES % (AUTO) 20.7 % (20.0-44.0); MEAN CORPUSCULAR HGB CONC 33 g/dl (31.0-36.0); MEAN CORPUSCULAR VOLUME 88 fL (82-100); MONOCYTES # (AUTO) 0.8 /CMM (0.1-1.30); MONOCYTES % (AUTO) 8.7 % (2.0-12.0); NEUTROPHILS # (AUTO) 5.2 /CMM (1.8-8.9); NEUTROPHILS % (AUTO) 58.1 % (43.0-81.0); PHOSPHORUS 4.3 mg/dL (2.5-4.9); PLATELET COUNT (AUTO) 189 /CMM (150-450); POTASSIUM 4.3 mmol/L (3.5-5.1); RED BLOOD CELL COUNT(AUTO) 3.99 MIL/uL (4.0-5.2)
--- NOTE | 2020-02-16 07:43 | NUR ---
WIRELESS WATCHER OPEN NOTES PATIENT IS A/O X 3-4 WITH NO SIGNS OF DISTRESS ON HIGH FLOW 30 L FIO2 40% SPO2 95%. R UA MIDLINE. TELE MONITOR SR WITH PVC. NO COMPLAIN OF PAIN AT THIS TIME. TELE MONITOR. SAFETY MEASURES ARE APPLIED, BED IS IN LOW POSITION SIDE RAILS UP X 2. CALL LIGHT WITHIN REACH. WILL CONTINUE TO MONITOR.
[2020-02-16 08:00] VITALS: BP 130/63
[2020-02-16] MEDS: PANTOPRAZOLE 40 MG TABLET.DR PO SCH (08:04)
[2020-02-16] MEDS: ASPIRIN EC 81 MG TABLET.DR PO SCH (08:05)
[2020-02-16] MEDS: ZINC SULFATE 220 MG CAPSULE PO SCH (08:05)
[2020-02-16] MEDS: EZETIMIBE 10 MG TABLET PO SCH (08:05)
[2020-02-16] MEDS: ICOSAPENT ETHYL 2 GM PO SCH ×2 (08:08→16:16)
[2020-02-16] MEDS: ENSURE ENLIVE 237 ML LIQUID (VANILLA) PO SCH ×3 (08:09→16:15)
[2020-02-16] MEDS: DIFLUPREDNATE RIGHTEYE SCH ×2 (08:10→16:15)
[2020-02-16] MEDS: Brinzolamide/Brimonid Tart (Simbrinza 1%-0.2% Eye Drops RIGHTEYE SCH ×2 (08:11→16:15)
[2020-02-16] MEDS: CARVEDILOL 3.125 MG TABLET PO SCH ×2 (08:16→16:13)
[2020-02-16] MEDS: POTASSIUM CHLORIDE 20 MEQ TAB.PRT.SR PO SCH (09:00)
[2020-02-16 12:00] VITALS: BP 101/54
--- NOTE | 2020-02-16 12:05 | NUR ---
HELD POTASSIUM FOR NOW PER DR. PEREZ. PATIENTS POTASSIUM LEVEL IS 4.3. WILL CONTINUE TO MONITOR.
[2020-02-16 16:00] VITALS: BP 107/59
--- NOTE | 2020-02-16 20:25 | NUR ---
PLACEMENT INTERVIEWER CLOSING NOTES PATIENT IS A/O X 4 WITH NO SIGNS OF DISTRESS ON 4L OF NASAL CANNULA SPO2 95%. R UA MIDLINE. TELE MONITOR. NO COMPLAIN OF PAIN AT THIS TIME. TELE MONITOR. PATIENT KEPT CLEAN AND DRY. ALL NEEDS, CARE, TREATMENT,AND MEDICATIONS WERE ADMINISTERED ANTICIPATED PER ORDER. SAFETY MEASURES ARE APPLIED, BED IS IN LOW POSITION SIDE RAILS UP X 2. CALL LIGHT WITHIN REACH WILL ENDORSE TO THE LEAD TECHNICAL WRITER NURSE.
[2020-02-16] MEDS: ENOXAPARIN SODIUM 40 MG/0.4 ML DISP.SYRIN SQ SCH (22:28)
[2020-02-16] MEDS: BROMFENAC SODIUM RIGHTEYE SCH (22:33)
--- NOTE | 2020-02-16 22:48 | NUR ---
GUANACO/RN PATIENT IS AWAKE, IN HIGH LINDER POSITION, COMFORTABLE, NO SIGNS OF DISTRESS NOTED, MEDICATIONS FOR HS WERE GIVEN, TOLERATED WELL, CALL LIGHT IN REACH. WILL MONITOR.
[2020-02-16 23:18] VITALS: BP 134/66
[2020-02-17] VITALS (7 sets, daily range): BP systolic 105–138; BP diastolic 54–77
[2020-02-17 05:57] LABS: BASOPHILS # (AUTO) 0.1 /CMM (0.0-0.2); BASOPHILS % (AUTO) 0.6 % (0.0-2.0); EOSINOPHILS % (AUTO) 12.4 % (0.0-6.0); HEMATOCRIT 33 % (33-45); HEMOGLOBIN 10.9 g/dL (11.5-14.8); LYMPHOCYTES # (AUTO) 2.3 /CMM (0.8-4.8); LYMPHOCYTES % (AUTO) 24.7 % (20.0-44.0); MEAN CORPUSCULAR HGB CONC 33 g/dl (31.0-36.0); MEAN CORPUSCULAR VOLUME 87 fL (82-100); MONOCYTES # (AUTO) 0.9 /CMM (0.1-1.30); MONOCYTES % (AUTO) 10.3 % (2.0-12.0); NEUTROPHILS # (AUTO) 4.8 /CMM (1.8-8.9); PLATELET COUNT (AUTO) 205 /CMM (150-450); RED BLOOD CELL COUNT(AUTO) 3.79 MIL/uL (4.0-5.2); WHITE BLOOD COUNT (AUTO) 9.2 K/uL (4.3-11.0)
[2020-02-17 06:10] LABS: CALCIUM, SERUM 8.9 mg/dL (8.5-10.1); CREATININE 0.6 mg/dL (0.6-1.3); MAGNESIUM 2.2 mg/dL (1.8-2.4); PHOSPHORUS 5.2 mg/dL (2.5-4.9); POTASSIUM 3.9 mmol/L (3.5-5.1)
--- NOTE | 2020-02-17 06:25 | NUR ---
GUANACO/RN PATIENT IS AWAKE AT THIS TIME, ON BED WITH NO DISTRESS NOTED, CALL LIGHT IN REACH, ALL NEEDS ATTENDED AT THIS TIME, WILL CONTINUE TO MONITOR.
--- NOTE | 2020-02-17 08:00 | NUR ---
RN OPENING NOTE Patient is resting in bed, A/O x4, saturating 95% on 4L NC. SOB upon exertion and transferring to bedside commode saturation goes down to 88%. Patient denies any pain or discomfort at this time. Bed is in lowest position, side rails x2 in upright position, call light is within reach, fall safety and aspiration precautions enforced. Will continue with plan of care.
[2020-02-17] MEDS: CARVEDILOL 3.125 MG TABLET PO SCH ×2 (09:00→16:28)
[2020-02-17] MEDS: ICOSAPENT ETHYL 2 GM PO SCH ×2 (09:00→16:28)
[2020-02-17] MEDS: ASPIRIN EC 81 MG TABLET.DR PO SCH (09:25)
[2020-02-17] MEDS: EZETIMIBE 10 MG TABLET PO SCH (09:25)
[2020-02-17] MEDS: POTASSIUM CHLORIDE 20 MEQ TAB.PRT.SR PO SCH (09:26)
[2020-02-17] MEDS: ZINC SULFATE 220 MG CAPSULE PO SCH (09:26)
[2020-02-17] MEDS: ENSURE ENLIVE 237 ML LIQUID (VANILLA) PO SCH ×3 (09:27→16:29)
[2020-02-17] MEDS: PANTOPRAZOLE 40 MG TABLET.DR PO SCH (09:28)
[2020-02-17] MEDS: Brinzolamide/Brimonid Tart (Simbrinza 1%-0.2% Eye Drops RIGHTEYE SCH ×2 (09:33→16:29)
--- NOTE | 2020-02-17 18:40 | NUR ---
RN CLOSING NOTE Patient is resting in bed, A/O x4, saturating 95% on 4L NC. SOB upon exertion and transferring to bedside commode saturation goes down to 88-92%. Patient denies any pain or discomfort at this time. All patient needs met, all due medications given, patient kept clean and dry throughout shift. Bed is in lowest position, side rails x2 in upright position, call light is within reach, fall safety and aspiration precautions enforced. Will endorse to plant operator/shift supervisor for NABIL. .
[2020-02-17] MEDS: BROMFENAC SODIUM RIGHTEYE SCH (21:52)
[2020-02-17] MEDS: ENOXAPARIN SODIUM 40 MG/0.4 ML DISP.SYRIN SQ SCH (21:56)
[2020-02-18 00:54] VITALS: BP 147/69
[2020-02-18 04:27] VITALS: BP 141/65
[2020-02-18 06:01] LABS: BASOPHILS # (AUTO) 0.1 /CMM (0.0-0.2); BASOPHILS % (AUTO) 0.8 % (0.0-2.0); EOSINOPHILS % (AUTO) 10.5 % (0.0-6.0); HEMATOCRIT 34 % (33-45); HEMOGLOBIN 11.1 g/dL (11.5-14.8); LYMPHOCYTES # (AUTO) 1.9 /CMM (0.8-4.8); LYMPHOCYTES % (AUTO) 20.4 % (20.0-44.0); MEAN CORPUSCULAR HGB CONC 33 g/dl (31.0-36.0); MEAN CORPUSCULAR VOLUME 87 fL (82-100); MONOCYTES # (AUTO) 0.9 /CMM (0.1-1.30); MONOCYTES % (AUTO) 9.8 % (2.0-12.0); NEUTROPHILS # (AUTO) 5.5 /CMM (1.8-8.9); NEUTROPHILS % (AUTO) 58.5 % (43.0-81.0); PLATELET COUNT (AUTO) 217 /CMM (150-450); RED BLOOD CELL COUNT(AUTO) 3.88 MIL/uL (4.0-5.2); WHITE BLOOD COUNT (AUTO) 9.4 K/uL (4.3-11.0)
[2020-02-18 06:09] LABS: CALCIUM, SERUM 8.7 mg/dL (8.5-10.1); CREATININE 0.6 mg/dL (0.6-1.3); MAGNESIUM 1.9 mg/dL (1.8-2.4); PHOSPHORUS 4.3 mg/dL (2.5-4.9); POTASSIUM 3.9 mmol/L (3.5-5.1)
--- NOTE | 2020-02-18 07:30 | NUR ---
RN OPENING NOTE PATIENT CURRENTLY IN BED, SLEEPING. NO S/S OF DISTRESS AT THIS TIME. CURRENTLY ON 4L NC, SATURATING 96% PATIENT ALERT/ORIENTED X4, PRYDEINIG SPEAKING. ABLE TO MAKE NEEDS KNOWN IN [place]. NSR SHOWING ON TELE MONITOR. PATIENT HAS JOAO MIDLINE RUNNING D5NS @ 40ML/HR. IV INTACT AND PATIENT, NO S/S OF INFECTION AT THIS TIME. SKIN INTACT. ALL SAFETY MEASURES IN PLACE PER HOSPITAL POLICY. BED LOCKED IN LOWEST POSITION. CALL LIGHT WITHIN REACH. WILL CONTINUE TO MONITOR AND PROVIDE CARE.
[2020-02-18] MEDS ORDERED: KEY,NONCONTROL,TO KEEP IN PYXI 1 EA MC ONE (07:45)
[2020-02-18 08:00] VITALS: BP 145/67
[2020-02-18] MEDS: PANTOPRAZOLE 40 MG TABLET.DR PO SCH (08:06)
[2020-02-18] MEDS: ASPIRIN EC 81 MG TABLET.DR PO SCH (08:06)
[2020-02-18] MEDS: ZINC SULFATE 220 MG CAPSULE PO SCH (08:06)
[2020-02-18] MEDS: EZETIMIBE 10 MG TABLET PO SCH (08:06)
[2020-02-18] MEDS: ICOSAPENT ETHYL 2 GM PO SCH ×2 (08:06→16:48)
[2020-02-18] MEDS: CARVEDILOL 3.125 MG TABLET PO SCH ×2 (08:07→16:48)
[2020-02-18] MEDS: POTASSIUM CHLORIDE 20 MEQ TAB.PRT.SR PO SCH (08:07)
[2020-02-18] MEDS: ENSURE ENLIVE 237 ML LIQUID (VANILLA) PO SCH ×3 (08:08→16:48)
[2020-02-18] MEDS: DIFLUPREDNATE RIGHTEYE SCH (08:08)
[2020-02-18] MEDS: Brinzolamide/Brimonid Tart (Simbrinza 1%-0.2% Eye Drops RIGHTEYE SCH ×2 (08:08→16:48)
[2020-02-18] MEDS: IV D5/ 0.9% NACL 1,000 ML IV PRN (09:35)
[2020-02-18 12:00] VITALS: BP 125/53
[2020-02-18 16:48] VITALS: BP 116/68
--- NOTE | 2020-02-18 18:39 | NUR ---
PATIENT DISCHARGED HOME VIA AMBULANCE. TAKEN WITH [facility] ACCOMPANIED BY TWO EMBROIDERY WORKER. REPORT GIVEN TO YURIY TEJADA. ALL BELONGS TAKEN WITH PATIENT. SOME BELONGINGS WERE PICKED UP BY SON EARLIER. IV REMOVED PRIOR TO DISCHARGE WITHOUT S/S OF EXCESSIVE BLEEDING.
== END 2020-02-18 18:52 | disposition home health service (06) | DRG 871 ==
LOC: ER 17:34 → TELE1 20:15
PROVIDERS: ADMIT Student in an Organized Health Care Education/Training Program; ATTEND Student in an Organized Health Care Education/Training Program
PROC: XW033E5 Introduction of Remdesivir Anti-infective into Peripheral Vein, Percutaneous Approach, New Technology Group 5 (ICD-10-PCS; 2020-01-24)
PROC: XW13325 Transfusion of Convalescent Plasma (Nonautologous) into Peripheral Vein, Percutaneous Approach, New Technology Group 5 (ICD-10-PCS; 2020-01-24)
PROC: XW033H5 Introduction of Tocilizumab into Peripheral Vein, Percutaneous Approach, New Technology Group 5 (ICD-10-PCS; principal; 2020-01-31)
PROC: 05H933Z Insertion of Infusion Device into Right Brachial Vein, Percutaneous Approach (ICD-10-PCS; 2020-02-12)
DX: A41.89 Other specified sepsis (principal); U07.1 COVID-19; J12.89 Other viral pneumonia; J96.01 Acute respiratory failure with hypoxia; E43 Unspecified severe protein-calorie malnutrition; N17.0 Acute kidney failure with tubular necrosis; J98.11 Atelectasis; E87.6 Hypokalemia; E86.0 Dehydration; D70.9 Neutropenia, unspecified; F41.9 Anxiety disorder, unspecified; I70.0 Atherosclerosis of aorta; Z66 Do not resuscitate
CPT/HCPCS: 36415; 36600; 71045-TC; 80048-TC; 80061-TC; 80076-TC; 80202-TC; 82728-TC; 82803-TC; 83615-TC; 83735-TC; 84100-TC; 84443-TC; 85025-TC; 85378-TC; 85610-TC; 85730-TC; 86140-TC; 86480; 86850-TC; 87040-TC; 87081-TC; 87899; 94760-TC; 94762-TC; 94799-TC; A4217; A6253; C9803; G0378; J0456; J0692; J0696; J1100; J1200; J1650; J2405; J2920; J3262; J3370; J3475; J3490; J7030; J7042; J7050; J7060; J7070; P9017-BL; U0003